=== PATIENT | male | born 1940 | race Caucasian/White ===

== ENCOUNTER → 2016-11-22 | Outpatient (CLI) | payer OTHER, BC ==
[~2016-11-22] MED LIST: ASPI81TA28 PO; ATEN50TA8 PO; ENOX100I SQ; FLM4 PO; GLC500 PO; INSU1.2I SQ; INSUINJ17 SC; LEVO150T9 PO; METF-384 PO; PRS5 PO; SERT25TA PO; SIMV40TA2 PO; SYN150 PO; TAMS0.4C59 PO; WARF5TAB90 PO; WARF7.5T PO; ZOLP1TAB PO
[2016-11-22 13:02] LABS: ESTIMATED AVERAGE GLUCOSE 143 mg/dl; HA1C FLAG Normal (Normal)
[2016-11-22 13:09] LABS: CHOLESTEROL/HDL RATIO 3.5
== END | disposition home or self-care (01) ==
LOC: C.LABPVFM 08:08
PROVIDERS: ATTEND Nurse Practitioner Family
DX: E11.49 Type 2 diabetes mellitus with other diabetic neurological complication (principal)

== ENCOUNTER 2016-12-16 12:18 | Emergency (ER) | payer OTHER, BC ==
[~2016-12-16] VITALS: Ht 180.3 cm; Wt 98.5 kg
[~2016-12-16 12:18] MED LIST changes: -ASPI81TA28 PO; -ENOX100I SQ; -FLM4 PO; -INSU1.2I SQ; -LEVO150T9 PO; -METF-384 PO; -WARF5TAB90 PO; -WARF7.5T PO
[2016-12-16 12:21] VITALS: TEMP 36.4; Ht 180.3 cm; Wt 98.5 kg
[2016-12-16 13:18] LABS: BASO % 0.2 %; BASO ABS # 0.01 K/uL (0-0.2); COMPLETE YES; EOS % 3.4 %; HEMATOCRIT 42.3 % (42-52); IG% 0.2 %; LYMPH % 28.6 %; LYMPH ABS # 1.16 K/uL (1.2-3.4); MEAN CELL VOLUME 87.8 fL (80-100); MEAN CORPUSCULAR HEMOGLOBIN 30.7 pg (25-34); MEAN PLATELET VOLUME 9.4 fL (7.4-10.4); MONO % 20.9 %; NEUT % 46.7 %; PLATELET COUNT 307 K/uL (130-400); RED BLOOD COUNT 4.82 M/uL (4.7-6.1); WHITE BLOOD COUNT 4.06 K/uL (4.8-10.8)
[2016-12-16] MEDS ORDERED: WARF5TAB90 PO (13:21)
[2016-12-16] MEDS ORDERED: WARF7.5T PO (13:21)
[2016-12-16] MEDS ORDERED: ASPI81TA28 PO (13:21)
[2016-12-16] MEDS ORDERED: METF-384 PO (13:21)
[2016-12-16] MEDS ORDERED: INSU1.2I SQ (13:21)
[2016-12-16 13:24] LABS: INR 1.7 (0.9-1.1); PROTHROMBIN TIME (PATIENT) 18.7 SECONDS (9.0-12.0)
[2016-12-16] MEDS ORDERED: PRS5 PO (13:25)
[2016-12-16] MEDS ORDERED: FLM4 PO (13:25)
[2016-12-16] MEDS ORDERED: LEVO150T9 PO (13:25)
--- NOTE | 2016-12-16 15:09 | DIAGNOSTIC IMAGING REPORT ---
RIGHT LOWER EXTREMITY VENOUS DOPPLER CLINICAL HISTORY: Right lower extremity swelling. COMPARISON STUDY: Right lower extremity venous Doppler March 13, 2016. TECHNIQUE: Sonography of the deep venous system of the right lower extremity was performed. Compression and augmentation were evaluated. FINDINGS: Nonocclusive thrombus within the right popliteal vein. Thrombus at this location was not shown on exam of March 13, 2016. No additional sites of deep venous thrombus were identified within the right lower extremity. IMPRESSION: Nonocclusive age indeterminate deep venous thrombus within the right popliteal vein. Electronically signed by: Leif Ledbetter M.D. 12/16/2016 3:08 PM Dictated Date/Time: 12/16/2016 3:04 PM
[2016-12-16 15:55] VITALS: BP 133/86; PULSE 72; O2SAT 94
[2016-12-16] MEDS ORDERED: ENOX100I SQ (16:07)
[2016-12-16] MEDS ORDERED: ENOXAPARIN 1 MG/KG SQ SCH (16:15)
--- NOTE | 2016-12-16 18:43 | EMERGENCY ROOM VISIT NOTE ---
History Report prepared by Gaudencio: Inocente Parmar Under the Supervision of: Dr. Tristan Reyes D.O. First contact with patient: 12:38 Chief Complaint: LEG PAIN,LEG INJURY Stated Complaint: BLOOD CLOT RIGHT CALF,DOCTOR REFERRED History of Present Illness The patient is a 76 year old male who presents to the Emergency Room with complaints of constant left leg pain that started two days ago. He rates his pain as a 6/10 in severity. The patient states that he is worried he has another blood clot because his pain is similar to his previous leg pains that he had developed from blood clots. He states that he went to visit his doctor recently when the nurse advised him to report to the ED. The patient states that his history of blood clots started a couple of years ago when he reported to the ED and found a blood clot in his popliteal artery. He states that his second blood clot occurred on the right side of his left leg following his abdominal surgery in March of 2016. The patient states that he is a former smoker and has been taking Coumadin for several years. He states that his last level was checked a week and a half ago and was 2.8. The patient states that his next appointment to check his levels is in four days. He also reports that he has been experiencing nausea and vomiting, but reports that he visited a doctor for these symptoms who said that it was just an illness from traveling to [facility]. The patient denies headache, change in vision, fevers, chest pain, shortness of breath, diarrhea, pain with urination, and melena. Source of History: patient Onset: two days ago Position: leg (left) Symptom Intensity: 6/10 Timing: constant Associated Symptoms: + nausea, + vomiting Review of Systems See HPI for pertinent positives & negatives. A total of 10 systems reviewed and were otherwise negative. Past Medical & Surgical Medical Problems: (1) Diabetes (2) Hx of blood clots (3) Hypertension (4) Right leg DVT (5) Urinary problem Surgical Problems: (1) Hx of shoulder surgery Family History Diabetes mellitus FHx: cancer FHx: heart disease Hypertension Social History Smoking Status: Former Smoker Alcohol Use: occasionally Marital Status: Occupation Status: unemployed Current/Historical Medications Scheduled Aspirin (Aspirin Ec), 81 MG PO QAM Atenolol (Tenormin), 75 MG PO QAM Enoxaparin (Lovenox), 100 MG SQ BID Finasteride (Finasteride), 5 MG PO DAILY Insulin Glargine (Toujeo Solostar), 26 UNITS SQ QPM Levothyroxine Sodium (Levothyroxine Sodium), 150 MCG PO QAM Metformin Hcl (Glucophage), 1,000 MG PO BID Sertraline (Zoloft), 25 MG PO QAM Simvastatin (Zocor), 40 MG PO QPM Tamsulosin HCl (Tamsulosin HCl), 0.4 MG PO DAILY Warfarin Sodium (Coumadin), 5 MG PO [id number] Warfarin Sodium (Coumadin), 7.5 MG PO MWF Scheduled PRN Zolpidem Tartrate (Ambien Er), 12.5 MG PO HS PRN for Sleep Allergies Coded Allergies: No Known Allergies (Verified , 12/16/16) Physical Exam Vital Signs Date Time Temp Pulse Resp B/P (MAP) Pulse Ox O2 Delivery O2 Flow Rate FiO2 12/16/16 15:55 72 16 133/86 94 Room Air 12/16/16 14:00 64 16 140/71 95 Room Air 12/16/16 12:21 36.4 79 16 136/77 96 Room Air Physical Exam GENERAL: sitting up in bed, alert, well appearing, well nourished, no distress, non-toxic EYE EXAM: normal conjunctiva, PERRL and EOM's grossly intact OROPHARYNX: no exudate, no erythema, lips, buccal mucosa, and tongue normal and mucous membranes are moist NECK: supple, no nuchal rigidity, no adenopathy, non-tender LUNGS: Clear to auscultation. Normal chest wall mechanics HEART: no murmurs, S1 normal and S2 normal ABDOMEN: abdomen soft, non-tender, normo-active bowel sounds, no masses, no rebound or guarding. UPPER EXTREMITIES: upper extremities are grossly normal. LOWER EXTREMITIES: No pitting edema. Right lower extremity full range of motion. Flexion and extension upright hip, knee, and ankle. DP 2/4. Gross sensation intact. Calves equal bilateral. NEURO EXAM: Normal sensorium, cranial nerves II-XII grossly intact, normal speech, no gross weakness of arms, no gross weakness of legs. Gross sensation intact. Medical Decision & Procedures ER Provider Diagnostic Interpretation: Radiology results as stated below per my review and the radiologist's interpretation: RIGHT LOWER EXTREMITY VENOUS DOPPLER CLINICAL HISTORY: Right lower extremity swelling. COMPARISON STUDY: Right lower extremity venous Doppler March 13, 2016. TECHNIQUE: Sonography of the deep venous system of the right lower extremity was performed. Compression and augmentation were evaluated. FINDINGS: Nonocclusive thrombus within the right popliteal vein. Thrombus at this location was not shown on exam of March 13, 2016. No additional sites of deep venous thrombus were identified within the right lower extremity. IMPRESSION: Nonocclusive age indeterminate deep venous thrombus within the right popliteal vein. Electronically signed by: Leif Ledbetter M.D. 12/16/2016 3:08 PM Dictated Date/Time: 12/16/2016 3:04 PM Laboratory Results 12/16/16 13:00 Red Blood Count 4.82, Mean Corpuscular Volume 87.8, Mean Corpuscular Hemoglobin 30.7, Mean Corpuscular Hemoglobin Concent 35.0, Mean Platelet Volume 9.4, Neutrophils (%) (Auto) 46.7, Lymphocytes (%) (Auto) 28.6, Monocytes (%) (Auto) 20.9, Eosinophils (%) (Auto) 3.4, Basophils (%) (Auto) 0.2, Neutrophils # (Auto ) 1.89, Lymphocytes # (Auto) 1.16, Monocytes # (Auto) 0.85, Eosinophils # (Auto ) 0.14, Basophils # (Auto) 0.01 Test 12/16/16 13:00 12/16/16 15:16 White Blood Count 4.06 K/uL (4.8-10.8) Red Blood Count 4.82 M/uL (4.7-6.1) Hemoglobin 14.8 g/dL (14.0-18.0) Hematocrit 42.3 % (42-52) Mean Corpuscular Volume 87.8 fL (80-100) Mean Corpuscular Hemoglobin 30.7 pg (25-34) Mean Corpuscular Hemoglobin Concent 35.0 g/dl (32-36) Platelet Count 307 K/uL (130-400) Mean Platelet Volume 9.4 fL (7.4-10.4) Neutrophils (%) (Auto) 46.7 % Lymphocytes (%) (Auto) 28.6 % Monocytes (%) (Auto) 20.9 % Eosinophils (%) (Auto) 3.4 % Basophils (%) (Auto) 0.2 % Neutrophils # (Auto) 1.89 K/uL (1.4-6.5) Lymphocytes # (Auto) 1.16 K/uL (1.2-3.4) Monocytes # (Auto) 0.85 K/uL (0.11-0.59) Eosinophils # (Auto) 0.14 K/uL (0-0.5) Basophils # (Auto) 0.01 K/uL (0-0.2) RDW Standard Deviation 45.9 fL (36.4-46.3) RDW Coefficient of Variation 14.2 % (11.5-14.5) Immature Granulocyte % (Auto) 0.2 % Immature Granulocyte # (Auto) 0.01 K/uL (0.00-0.02) Prothrombin Time 18.7 SECONDS (9.0-12.0) Prothromb Time International Ratio 1.7 (0.9-1.1) Bedside Glucose 92 mg/dl (70-99) Laboratory results per my review. ED Course ED COURSE: Vital signs were reviewed and showed hypertension The patients medical record was reviewed The above diagnostic studies were performed and reviewed. ED treatments and interventions as stated above. 1240: The patient was evaluated in room C02B. A complete history and physical examination was performed. 1325: I reevaluated the patient and he is resting comfortably. He is still waiting on his ultrasound results. 1429: I reevaluated the patient and he is resting comfortably. 1547: I reevaluate the patient and he is resting comfortably. 1550: I discussed the patient's case with Dr. May, Cardiology [facility]. He recommends giving the patient Coumadin and an INR recheck. 1609: Upon reevaluation, the patient is feeling better. I discussed the findings and the treatment plan with the patient. She verbalizes agreement and understanding. The patient was discharged home. 1615: Enoxaparin Sodium 1 each SQ. Medical Decision The differential diagnosis includes but is not limited to: etiologies such as DVT, musculoskeletal, infection, joint effusion, trauma, lymphedema, idiopathic , CHF, as well as others were entertained.. Medication Reconciliation: I attest that I have personally reviewed the patient' s current medication list. Blood Pressure Screening: The patient was found to have a slightly elevated blood pressure due to circumstances. I do not believe that the patient requires hypertension monitoring. 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 History of clots. He is on Coumadin. Coumadin was 1.7. Indeterminate clot in right calf. Discussed with cardiology who is managing his Coumadin. Agreed with increasing Coumadin to 7.5 mg daily until when he will check his INR at home. In the meantime he'll take Lovenox subcutaneous twice a day. Patient was updated regards these findings. He will follow-up with cardiology on when he checks his INR. At that time he will stop the Lovenox and followed their direction for readjusting Coumadin dosing. Discussed with Pt concerning signs and symptoms to watch out for. Pt was instructed to follow up with their PCP and discussed with the patient their option to return to the ED at anytime for persistent or worsening symptoms. The appropriate anticipatory guidance and out-patient management, including indications for return to the emergency department, were explained at length to the patient and understood. Consults Time Called: 1550 Consulting Physician: Dr. May, Cardiology [facility] Returned Call: 1550 I discussed the patient's case with Dr. May, Cardiology [facility]. He recommends giving the patient Coumadin and an INR recheck. Impression Primary Impression: DVT, lower extremity Additional Impression: Subtherapeutic international normalized ratio (INR) Scribe Attestation The scribe's documentation has been prepared under my direction and personally reviewed by me in its entirety. I confirm that the note above accurately reflects all work, treatment, procedures, and medical decision making performed by me. Departure Information Dispostion Home / Self-Care Prescriptions Enoxaparin (LOVENOX) 100 Mg/Ml Inj 100 MG SQ BID for 3 Days Prov: Tristan Reyes, 12/16/16 Referrals RV. Shelton MD (PCP) Forms HOME CARE DOCUMENTATION FORM, IMPORTANT VISIT INFORMATION Patient Instructions DVT, DVT Dc, Enoxaparin injection, My [facility] Additional Instructions Please follow up with your primary care doctor or if you are a student, [facility] with in the next 24 hours. Any worsening of your symptoms, please return to the ED immediately. This includes any fevers greater than 100.4, worsening pain, chest pain, shortness breath, persistent nausea, vomiting, unable to eat or drink, or any other concerning signs or symptoms from your standpoint. You were found to have a blood pressure greater than 120 systolic over 90 diastolic. Due to the new Medicare guidelines, we are now recommending that you follow up with your primary care doctor in regards to this elevated blood pressure. Please increase your daily Coumadin to 7.5 mg daily until your INR is checked on Friday. Please contact cardiology who is following your Coumadin level and inform them of your age indeterminate DVT. Please take Lovenox shots for the next 3 days. Problem Qualifiers Primary Impression: DVT, lower extremity Affected thrombotic vein of extremity: unspecified vein of extremity Chronicity: unspecified Laterality: unspecified laterality Qualified Codes: I82.409 - Acute embolism and thrombosis of unspecified deep veins of unspecified lower extremity
== END 2016-12-16 16:15 | disposition home or self-care (01) ==
LOC: C.EDB 12:20 → C.EDC 16:15
DX: I82.431 Acute embolism and thrombosis of right popliteal vein (principal); R79.1 Abnormal coagulation profile; E11.9 Type 2 diabetes mellitus without complications; I10 Essential (primary) hypertension; R11.2 Nausea with vomiting, unspecified; Z87.891 Personal history of nicotine dependence; Z82.49 Family history of ischemic heart disease and other diseases of the circulatory system; Z83.3 Family history of diabetes mellitus; Z79.01 Long term (current) use of anticoagulants; Z79.4 Long term (current) use of insulin; Z79.82 Long term (current) use of aspirin; Z79.84 Long term (current) use of oral hypoglycemic drugs

== ENCOUNTER → 2017-08-26 | Outpatient (CLI) | payer OTHER, BC ==
[~2017-08-26] MED LIST changes: +ASPI81TA28 PO; +ENOX100I SQ; +FLM4 PO; -GLC500 PO; +INSU1.2I SQ; -INSUINJ17 SC; +LEVO150T9 PO; +METF-384 PO; -SYN150 PO; -TAMS0.4C59 PO; +WARF5TAB90 PO; +WARF7.5T PO
[2017-08-26 13:25] LABS: BASO % 0.3 %; BASO ABS # 0.02 K/uL (0-0.2); EOS % 6.1 %; EOS ABS # 0.42 K/uL (0-0.5); HEMATOCRIT 41.6 % (42-52); HEMOGLOBIN 14.1 g/dL (14.0-18.0); IG# 0.02 K/uL (0.00-0.02); LYMPH % 19.6 %; LYMPH ABS # 1.35 K/uL (1.2-3.4); MEAN CELL VOLUME 89.1 fL (80-100); MEAN CORPUSCULAR HEMOGLOBIN 30.2 pg (25-34); MEAN CORPUSCULAR HGB CONC 33.9 g/dl (32-36); MEAN PLATELET VOLUME 10.1 fL (7.4-10.4); MONO % 8.7 %; NEUT ABS # 4.47 K/uL (1.4-6.5); PLATELET COUNT 346 K/uL (130-400); RED CELL DISTRIBUTION WIDTH CV 13.9 % (11.5-14.5); RED CELL DISTRIBUTION WIDTH SD 45.6 fL (36.4-46.3); WHITE BLOOD COUNT 6.88 K/uL (4.8-10.8)
[2017-08-26 14:28] LABS: ALBUMIN 3.8 gm/dl (3.4-5.0); ALT/SGPT 41 U/L (12-78); AST/SGOT 23 U/L (15-37); BLOOD UREA NITROGEN 19 mg/dl (7-18); CALCIUM 9.1 mg/dl (8.5-10.1); CARBON DIOXIDE 25 mmol/L (21-32); CREATININE 1.21 mg/dl (0.60-1.40); GLUCOSE 142 mg/dl (70-99); POTASSIUM 4.4 mmol/L (3.5-5.1); SODIUM 139 mmol/L (136-145)
[2017-08-26 14:31] LABS: ALKALINE PHOSPHATASE 49 U/L (45-117); TOTAL PROTEIN 7.6 gm/dl (6.4-8.2)
== END | disposition home or self-care (01) ==
LOC: C.LABPVFM 08:23
PROVIDERS: ATTEND Internal Medicine Cardiovascular Disease
DX: E11.49 Type 2 diabetes mellitus with other diabetic neurological complication (principal); I48.91 Unspecified atrial fibrillation; E78.00 Pure hypercholesterolemia, unspecified; N40.1 Benign prostatic hyperplasia with lower urinary tract symptoms

== ENCOUNTER → 2018-01-16 | Outpatient (CLI) | payer OTHER, BC | END | disposition home or self-care (01) | LOC: C.LABPVFM 14:41 | PROVIDERS: ATTEND Urology | DX: Z12.5 Encounter for screening for malignant neoplasm of prostate (principal) ==

== ENCOUNTER 2020-01-18 06:36 | Inpatient (IN) ==
--- NOTE | 2019-12-22 15:19 | PAT Medication Instructions ---
Medication Instructions Date of Service December 22, 2019 Home Medications Medication Instructions Recorded metformin 1,000 mg tablet 1,000 mg PO BID #180 tab 04/21/19 simvastatin 40 mg tablet 40 mg PO QPM #90 tab 05/07/19 Dexcom G6 Sensor #3 ea NS 06/22/19 Dexcom G6 Transmitter #1 ea NS 06/22/19 blood-glucose meter,continuous #1 ea 06/22/19 pen needle, diabetic 32 gauge x #400 ea 07/06/19" Novolog Flexpen U-100 Insulin 100 See Rx Instructions .ROUTE 09/13/19 unit/mL (3 mL) subcutaneous .COMPLEX #45 ml NS TrialPayTouch Ultra Blue Test Strip #100 ea NS 09/28/19 aspirin 81 mg tablet,delayed release 81 mg PO QAM multivitamin 1 cap PO QAM metformin 1,000 mg tablet 1,000 mg PO BID simvastatin 40 mg tablet 40 mg PO QPM cyanocobalamin (vitamin B-12) 1,000 mcg tablet,extended release 1,000 mcg PO QAM Novolog Flexpen U-100 Insulin 100 unit/mL (3 mL) subcutaneous WITH MEALS allopurinol 100 mg PO QAM atenolol 50 mg PO QAM cholecalciferol (vitamin D3) 2,000 units PO QAM 12/20/19 finasteride 5 mg PO PM insulin glargine U-300 conc [Toujeo SoloStar U-300 Insulin] 30 units SQ PM levothyroxine 150 mcg PO QAM rivaroxaban 20 mg PO PM sertraline 75 mg PO QAM tamsulosin 0.4 mg PO PM ASK your prescriber and surgeon rivaroxaban 20 mg PO PM -- MUST BE HELD FOR AT LEAST 3 FULL DAYS PRIOR TO SURGERY FOR SPINAL ANESTHESIA. DO NOT take the morning of surgery multivitamin 1 cap PO QAM metformin 1,000 mg tablet 1,000 mg PO BID cyanocobalamin (vitamin B-12) 1,000 mcg tablet,extended release 1,000 mcg PO QAM Novolog Flexpen U-100 Insulin 100 unit/mL (3 mL) subcutaneous WITH MEALS cholecalciferol (vitamin D3) 2,000 units PO QAM Take morning of surgery With a small sip of water, OTHERWISE NOTHING TO EAT OR DRINK AFTER MIDNIGHT: aspirin 81 mg tablet,delayed release 81 mg PO QAM allopurinol 100 mg PO QAM atenolol 50 mg PO QAM levothyroxine 150 mcg PO QAM sertraline 75 mg PO QAM Take evening before surgery metformin 1,000 mg tablet 1,000 mg PO BID simvastatin 40 mg tablet 40 mg PO QPM Novolog Flexpen U-100 Insulin 100 unit/mL (3 mL) subcutaneous WITH MEALS finasteride 5 mg PO PM insulin glargine U-300 conc [Toujeo SoloStar U-300 Insulin] 30 units SQ PM tamsulosin 0.4 mg PO PM Other Notes If you have any questions please call us at [phone] or [phone] or [phone] or [phone]
--- NOTE | 2019-12-23 12:26 | Anesthesiology Consultation ---
Date of Service December 23, 2019 Assessment & Plan (1) Encounter for pre-operative examination: COVID Status: As of 12/22 assessment, patient denies travel to endemic area, known exposure/sick contacts, or symptoms of COVID19. Patient instructed that they and their household members must follow strict social distancing guidelines, wear a mask in public and avoid travel for 14 days prior to surgery. Patient going to [place] (very remote location) for vacation prior to surgery. Leaving 12/23, returning 12/31. Scheduled for COVID test 11 days after return on 01/11. Patient is flying [employer], will observe masking and social distancing. Preoperative COVID19 testing to be completed prior to surgery per surgeon's arrangements. Patient made aware to self-isolate as much as possible between COVID testing and surgery. Chart Review Chart Review: Acceptable Risk for Surgery and Patient seen in Pre Admission Testing Teaching & Discussion Instructed NPO after midnight before surgery, except medications with 15 cc of water. Medication instructions provided according to the PAT guidelines. History Surgery Operation Date: 01/18/20 12:30 Proposed Procedures p Left Total Knee Arthroplasty - Guicho Ragland MD Height/Weight Height: 5 ft 11 in Weight: 98.1 kg Allergies Allergy/AdvReac Type Severity Reaction Status Date / Time No Known Drug Allergies Allergy Verified 12/20/19 15:09 Medications Home Medications Medication Instructions Recorded Confirmed Last Taken aspirin 81 mg tablet,delayed 81 mg PO QAM tab 12/17/18 12/20/19 Unknown release lancets 33 gauge #100 ea 02/15/19 10/28/19 Unknown multivitamin 1 cap PO QAM 02/15/19 12/20/19 Unknown metformin 1,000 mg tablet 1,000 mg PO BID #180 tab 04/21/19 12/20/19 Unknown simvastatin 40 mg tablet 40 mg PO QPM #90 tab 05/07/19 12/20/19 Unknown Dexcom G6 Sensor #3 ea NS 06/22/19 10/28/19 Unknown Dexcom G6 Transmitter #1 ea NS 06/22/19 10/28/19 Unknown blood-glucose meter,continuous #1 ea 06/22/19 10/28/19 Unknown cyanocobalamin (vitamin B-12) 1,000 mcg PO QAM tab 06/22/19 12/20/19 Unknown 1,000 mcg tablet,extended release pen needle, diabetic 32 gauge x #400 ea 07/06/19 12/20/19 Unknown " Novolog Flexpen U-100 Insulin 100 See Rx Instructions .ROUTE 09/13/19 12/20/19 Unknown unit/mL (3 mL) subcutaneous .COMPLEX #45 ml NS NetDevicesTouch Ultra Blue Test Strip #100 ea NS 09/28/19 10/28/19 Unknown allopurinol 100 mg PO QAM 12/20/19 12/20/19 Unknown atenolol 50 mg PO QAM 12/20/19 12/20/19 Unknown cholecalciferol (vitamin D3) 2,000 units PO QAM 12/20/19 12/20/19 Unknown finasteride 5 mg PO PM 12/20/19 12/20/19 Unknown insulin glargine U-300 conc 30 units SQ PM 12/20/19 12/20/19 Unknown [Toujeo SoloStar U-300 Insulin] levothyroxine 150 mcg PO QAM 12/20/19 12/20/19 Unknown rivaroxaban 20 mg PO PM 12/20/19 12/20/19 Unknown sertraline 75 mg PO QAM 12/20/19 12/20/19 Unknown tamsulosin 0.4 mg PO PM 12/20/19 12/20/19 Unknown Past Medical History Medical History Anemia (Acute) Anticoagulant long-term use (Acute) 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 Follows with Dr. May. 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) Diabetic peripheral neuropathy (Chronic) Dupuytren's contracture (Chronic) LEFT LITTLE FINGER DVT (deep venous thrombosis) LEFT FOOT > POST SURG > 6 YRS AGO> ON ELIQUIS Dyslipidemia (Chronic) Essential hypertension (Resolved) Gout Hypercholesterolemia (Chronic) Hypothyroidism (acquired) (Chronic) Left knee DJD Moderate alcohol consumption (Inactive) Osteoarthritis PAD (peripheral artery disease) (Chronic) Vitamin D deficiency (Chronic) Exercise / Class Metabolic Activity II 4-5 Yardwork/Stairs/Walk up hill (Denies CP or SOB with 1 FOS, just slow, limited by knee pain) Past Family History Family History Mother Laryngeal cancer Lung cancer Father Coronary heart disease Diabetes Grandfather (Paternal) Diabetes Denies family history of Ovarian cancer Prostate cancer Myocardial infarction Breast cancer Colorectal cancer Past Surgical History Surgical History History of cataract surgery bilat History of colectomy For diverticulitis. History of colonoscopy History of embolectomy Arterial by leg incision> RIGHT LEG POPLITEAL > 20 YRS AGO History of fasciotomy Open Palmar for Dupuytren's Contracture> bilat History of inguinal hernia repair History of resection of rib Cervical rib with division of scalenous anticus> ROM GOOD PER PATIENT History of total shoulder replacement right Hx of vasectomy Past Anesthesia History No Hx of Anesthesia Complications and No Family Hx of Anesthesia Complications History of PONV No Hx of PONV and No Hx of Motion Sickness Social History Smoking Status: Former smoker Do You Dip or Chew Tobacco: No Smoking End Date: 30 YRS AGO Hx Alcohol Use: Yes Alcohol type: beer, wine and hard liquor alcohol intake frequency: a few times a month Hx Substance Use: Yes substance use type: marijuana Substance Use Type Other:: SMOKES AT HS, none x 24 hours before surgery Review of Systems Pt denies any recent chest pain, shortness of breath, palpitations, cough, fever, URI, or uncontrolled acid reflux. Physical Exam Vital Signs BP: 135/75 P: 65bpm SPO2: 97% RA T: 97.8 F R: 16 ENMT Mouth: no dental restorations, no chipped teeth and no loose teeth Thyromental Distance: > or= 3.5 Finger Breadths (3.5) Mallampati Class: I Neck normal visual inspection and + facial hair (stubble); neck extension not limited Respiratory normal respiratory effort Auscultation: lungs clear to auscultation bilaterally Cardiovascular Rate/Rhythm: regular rate and regular rhythm Heart Sounds: no murmur Vessels: no carotid bruit Extremities: no edema Testing Laboratory Results 12/23/19 12:45 12/23/19 12:45 PT 11.4 Seconds (9.0-12.0) 12/23/19 12:45 INR 1.1 (0.9-1.1) 12/23/19 12:45 APTT 33.7 Seconds (21.0-31.0) H 12/23/19 12:45 Hemoglobin A1c 6.4 % (4.5-5.6) H 12/23/19 12:45 Blood Type A Positive 12/23/19 12:45 Antibody Screen NEGATIVE 12/23/19 12:45 Electrocardiogram Date: 07/20/19 Findings: + NSR @ (75bpm) and + RBBB Chest X-Ray Date: 07/20/19 (CHEST CT) FINDINGS: Note is made of acute nondisplaced fractures of the posterior left 10th and 11th ribs. There is a trace left pleural effusion. There is no pneumothorax. Segmental left lower lobe opacity favors atelectasis. There is subsegmental right lower lobe atelectasis. The central airways are patent. Heart is moderately enlarged. There is no thoracic lymphadenopathy. There is no mediastinal hematoma. No acute thoracic spine fracture is noted. There are no suspicious osseous lesions. There is possible fatty infiltration of the liver. Right shoulder arthroplasty is incidentally noted. IMPRESSION: 1. Acute nondisplaced fractures of the posterior left 10th and 11th ribs. Trace left pleural effusion. No pneumothorax. 2. Bilateral lower lobe and lingular atelectasis.
[2019-12-23 14:17] LABS: Basophils # (auto) 0.02 K/uL (0-0.2); Basophils % (auto) 0.2 %; Eosinophils # (auto) 0.76 K/uL (0-0.5); Eosinophils % (auto) 8.4 %; Hematocrit (blood only) 38.5 % (42-52); Hemoglobin 13.2 g/dL (14.0-18.0); Immature Granulocytes # (auto) 0.01 K/uL (0.00-0.02); Immature Granulocytes % (auto) 0.1 %; Lymphocytes # (auto) 1.41 K/uL (1.2-3.4); Lymphocytes % (auto) 15.6 %; Mean Corpuscular Hemoglobin 28.8 pg (25-34); Mean Corpuscular Hgb Conc 34.3 g/dL (32-36); Mean Corpuscular Volume 83.9 fL (80-100); Monocytes # (auto) 0.72 K/uL (0.11-0.59); Monocytes % (auto) 7.9 %; Neutrophils # (auto) 6.14 K/uL (1.4-6.5); Neutrophils % (auto) 67.8 %; Platelet Count 390 K/uL (130-400); RDW Coefficient of Variation 14.2 % (11.5-14.5); RDW Standard Deviation 43.7 fL (36.4-46.3); Red Blood Count 4.59 M/uL (4.7-6.1); White Blood Count 9.06 K/uL (4.8-10.8)
[2019-12-23 14:20] LABS: Estimated Average Glucose 137 mg/dl; Hemoglobin A1C 6.4 % (4.5-5.6)
[2019-12-23 14:25] LABS: BUN Creatinine Ratio 20.7 (10-20); Calcium 9.3 mg/dl (8.5-10.1); Creatinine Clr Calc Pharmacy 54.6 ml/min; Est GFR (African American) 59.6; Est GFR (Non-African American) 51.4; Potassium 4.6 mmol/L (3.5-5.1)
[2019-12-23 14:35] LABS: INR 1.1 (0.9-1.1); Partial Thromboplastin Ratio 1.2; Partial Thromboplastin Time 33.7 Seconds (21.0-31.0); Prothrombin Time 11.4 Seconds (9.0-12.0)
--- NOTE | 2020-01-14 20:48 | History and Physical Report ---
DATE OF ADMISSION: 01/18/2020 CHIEF COMPLAINT: Persistent left knee pain, discomfort, and swelling. HISTORY OF PRESENT ILLNESS: The patient is a 79-year-old fairly active gentleman who presents for treatment of his left knee. He has a history of left knee pain, followed by Dr. Jama in the past. Unfortunately, his in 12/2018 and he has gained some weight since then. He has been trying to get more active in order to lose some of the weight and his knee has become more and more bothersome for him. We have been treating with repeated aspirations and injections, which provided minimal relief over time. It continued to swell up quite a bit. He has been on a weight loss program, but having difficulty due to his limited activity due to his knee pain. He has constant swelling. Pain is fairly global. He would now like to have his knee fixed. PAST MEDICAL HISTORY: Significant for, 1. Atrial fibrillation, status post cardioversion. 2. Diabetes. 3. Mitral valve prolapse. 4. Hypothyroidism. 5. History of DVT in the left lower extremity. 6. Popliteal artery clot on the right side in 1995. 7. BPH. PAST SURGICAL HISTORY: Includes, 1. Right shoulder replacement done by Dr. Jama. 2. Bowel resection. ALLERGIES: None. CURRENT MEDICINES: Include, 1. Aspirin. 2. Atenolol. 3. Finasteride. 4. Insulin. 5. Levothyroxine. 6. Metformin. 7. Multivitamin. 8. Xarelto. 9. Sertraline. 10. Sildenafil. 11. Simvastatin. 12. Tamsulosin. SOCIAL HISTORY: A 79-year-old male. He is . One drink per day. Uses marijuana and CBD oil. FAMILY HISTORY: Significant for diabetes and lung cancer. REVIEW OF SYSTEMS: Significant for atrial fibrillation, although he has been in sinus rhythm on his preoperative workup. Denies any chest pain or shortness of breath. He does use CBD and marijuana. No history of gout. No bleeding problems. PHYSICAL EXAMINATION: GENERAL: Shows a pleasant elderly male. Looks to be in pretty good health. HEENT: Benign. NECK: Supple, no lymphadenopathy. LUNGS: Clear to auscultation. HEART: Has a regular rate and rhythm. ABDOMEN: Soft, nontender, nondistended. EXTREMITIES: Grossly neurovascularly intact except as follows: Examination of the left knee reveals the patient walks with a bit of a limp. He has got varus alignment to his knee. He has got pretty significant joint effusion. No real warmth. Range of motion is 5 degrees short of full extension and 120 degrees of flexion. There is no gross instability. No pain with hip motion. X-RAYS: X-rays of the left knee were reviewed. It shows advanced medial compartment arthritis. He has got complete loss of his medial joint space. This has progressed significantly since his films done at [facility] in 03/2019. ASSESSMENT: A 79-year-old male with multiple medical comorbidities including atrial fibrillation, neuropathy, history of blood clots in the past, diabetes with advanced medial compartment degenerative joint disease. This has progressed over the past year significantly and he has failed all conservative measures. He would like to have his knee fixed. PLAN: We will take him to the operating room and do a left total knee replacement. The risks and benefits of this procedure were explained to the patient including but not limited to DVT, PE, , infection, neurological injury, vascular injury, bleeding problem, pain, limited range of motion, stiffness, failure to his relieve symptoms, incomplete relief of symptoms, need for further surgery in the future, fracture, leg length inequality, nerve palsy, etc. The patient understands and desires to proceed. Informed consent was obtained. We did talk about holding the Xarelto 48 hours beforehand. Hold the metformin on the morning of surgery. He should take the atenolol. With his history of DVT, we will put him back on Xarelto postoperatively at a prophylactic dose 24 hours after surgery. As far as discharge plans, he is hoping to be discharged to home using the [facility] home health program. We will see how he does in the hospital.
[~2020-01-18 06:36] MED LIST changes: +ACETAMINOPHEN 500 MG TAB PO SCH; -ASPI81TA28 PO; -ATEN50TA8 PO; +BUPIVACAINE 0.5 % 5 MG/1 ML PF 10ML VIAL ONE; +BUPIVACAINE LIPOSOME/PF 266 MG, BUPIVACAINE/EPINEPHRINE 50 ML, SODIUM CHLORIDE 0.9% 30 ... INFIL SCH; +CEFAZOLIN 2000MG 2,000 MG/15 ML SYR IV SCH; -ENOX100I SQ; +FAMOTIDINE 20 MG TAB PO SCH; -FLM4 PO; +GABAPENTIN 300 MG CAP PO SCH; -INSU1.2I SQ; -LEVO150T9 PO; +LR 500ML BOLUS, THEN 15ML/HR IV SCH; +LR 60ML/HR IV SCH; -METF-384 PO; +METOCLOPRAMIDE HCL 10 MG TABLET PO SCH; -PRS5 PO; -SERT25TA PO; -SIMV40TA2 PO; +TRANEXAMIC ACID 1,000 MG **IV Intra-op IV SCH; +TRANEXAMIC ACID 1,000 MG **IV Pre-op IV SCH; -WARF5TAB90 PO; -WARF7.5T PO; -ZOLP1TAB PO
--- NOTE | 2020-01-18 06:51 | History & Physical Bridge Note ---
Date of Service January 18, 2020 History & Physical Bridge Note I have examined the patient, reviewed the History & Physical and in the interval since the performance of the History & Physical I have noted the following changes of clinical significance: no changes noted
[2020-01-18] MEDS ORDERED: MIDAZOLAM HCL 1 MG/ML 2ML VIAL ONE (07:04)
[2020-01-18] MEDS ORDERED: fentaNYL citrate 100 MCG/2 ML VIAL ONE ×2 (07:04→08:58)
[2020-01-18] MEDS ORDERED: PROPOFOL IV EMULSION 10 MG/ML 20 ML VIAL IV ONE (07:06)
[2020-01-18] MEDS ORDERED: ePHEDrine sulfate 50 MG/ML AMP IV PRN (08:15)
[2020-01-18] MEDS ORDERED: ONDANSETRON INJ 2 MG/ML 2 ML VIAL IV PRN ×2 (08:15→11:29)
[2020-01-18] MEDS ORDERED: fentaNYL citrate 100 MCG/2 ML VIAL IV PRN (08:15)
[2020-01-18] MEDS ORDERED: ATROPINE SULFATE 0.1 MG/ML 10ML SYR IV PRN (08:15)
[2020-01-18] MEDS ORDERED: ROPIVACAINE 0.5% 5 MG/ML 30 ML VIAL ONE (08:25)
[2020-01-18] MEDS ORDERED: BUPIVACAINE/EPINEPHRINE 0.25% 1:200,000 30 ML VIAL ONE (08:37)
[2020-01-18] MEDS ORDERED: BUPIVACAINE LIPOSOME 1.3% 266 MG/20 ML VIAL ONE (08:37)
[2020-01-18] MEDS ORDERED: BACITRACIN INJ 50,000 UNIT VIAL ONE (08:37)
[2020-01-18] MEDS ORDERED: SODIUM CHLORIDE 0.9% PF 50 ML VIAL ONE (08:37)
[2020-01-18] MEDS ORDERED: ePHEDrine sulfate 50 MG/ML SYR ONE (08:58)
[2020-01-18] MEDS ORDERED: PHENYLEPHRINE 100MCG/ML 5ML SYR ONE (08:58)
[2020-01-18] MEDS ORDERED: DEXAMETHASONE SOD INJ 4 MG/ML VIAL ONE (09:01)
[2020-01-18] MEDS ORDERED: ONDANSETRON INJ 2 MG/ML 2 ML VIAL ONE (09:01)
[2020-01-18] MEDS ORDERED: HYDROmorphone INJ 2 MG/ML SYR/VIAL ONE (09:24)
--- NOTE | 2020-01-18 10:33 | Post Operative Brief Note ---
PG Immediate Post Op with CF Date of Surgery January 18, 2020 Pre & Post Diagnosis Operation Date: 01/18/20 08:50 Pre-Op Diagnosis: Left Knee Advanced Degenerative Joint Disease Post-Op Diagnosis: Left Knee Advanced Degenerative Joint Disease I identified the patient and participated in the time-out.: Yes Procedure Operation Date: 01/18/20 08:50 Actual Procedures p Left Total Knee Arthroplasty(Left) - Guicho Ragland MD Surgeon Guicho Ragland MD Sanitation Tank Washer Za, PAC Estimated Blood Loss 50 Findings Consistent with Post-Op Diagnosis Fluids 800 cc Specimens Specimen Description: Permanent specimen: A. Left knee bone and tissue B. Left knee synovium tissue Anesthesia Type General Regional Complications none Disposition Accompanied Patient To Recovery: Yes Disposition: Recovery Room
--- NOTE | 2020-01-18 10:51 | Operative Report ---
Post Operative Report Pre & Post Diagnosis Operation Date: 01/18/20 08:50 Pre-Op Diagnosis: Left Knee Advanced Degenerative Joint Disease Post-Op Diagnosis: Left Knee Advanced Degenerative Joint Disease I identified the patient and participated in the time-out.: Yes Procedure Operation Date: 01/18/20 08:50 Actual Procedures p Left Total Knee Arthroplasty(Left) - Guicho Ragland MD Surgeon Guicho Ragland MD Building Attendant Za, PAC Estimated Blood Loss 50 Findings Consistent with Post-Op Diagnosis Operative findings revealed advanced left knee medial and patellofemoral compartment arthritis. He had a large knee joint effusion. He did have a significant chronic synovitis synovial growths which looked benign in the suprapatellar pouch which was sent off for pathology. He had grade 4 bone-on- bone disease of the medial compartment as well as the patellofemoral compartment. Fluids 800 cc. Specimens Left knee sent for pathology. Also send some synovium for pathology. Drains None. Anesthesia Type General Regional Complications none Disposition Accompanied Patient To Recovery: Yes Disposition: Recovery Room Indications Patient is a 79-year-old very active gentleman is had a history of left knee pain discomfort that is gotten suddenly worse over the past 6 months or so. He has been through a difficult social situation with his recently and gained some weight. He was try to lose some weight is become more active but had more more difficulty due to his knee pain. Had recurrent swelling. Failed all conservative care. X-rays show progressive left knee arthritis. He elected to proceed with surgical treatment. Of note, the patient is on Xarelto. He only stopped this about 36 hours before surgery and therefore a spinal anesthetic could not be performed. He was fully aware this and wanted to proceed. We did have to do his surgery under general anesthesia with abductor canal block. Description of Procedure Operative implants consist of: 1 Biomet Vanguard size 70 left posterior by femoral component. 2. Biomet size 79 tibial tray. 3. 10 mm posterior stabilized polyethylene insert. 4. 31 x 8 all poly-patella. The patient was taken to the operating identified and placed on the operating table supine position protectors were properly padded. A general anesthetic it was implemented as he he had been on Xarelto up and about 36 hours preop. A left thigh turn was then placed. The left lower extremity was then prepped and draped in usual sterile fashion. Left leg was elevated exsanguinated Esmarch and turns placed at 300 mmHg. An anterior posterior left knee was then performed to longitudinal incision centered over the patella. Sharp dissection was got through subcutaneous this down the extensor mechanism. A medial parapatellar arthrotomy incision was made. Some subperiosteal dissection Medially. I did do a complete synovectomy of the suprapatellar pouch and some this abnormal looking the synovium was sent for pathology. It appeared benign. The fat pad was resected from each patella tendon. Lateral patellofemoral ligament was released and the patella was subluxated laterally. The knee was flexed. The osteophytes were taken off the distal femur. The ACL and PCL were then released from distal femur the tibia subluxate anteriorly. External tibial alignment jig was then placed in the interface the tibia and adjusted 14 mm medially. Proximal tibial cut was made to move about 2 to 3 mm of bone from the medial side. The tibia was then sized to a size 79. We try to maximize coverage. Attention drawn the femur. The distal femur was entered the sharp drop with intramedullary canal was suction. A left 6 degree valgus cutting guide was placed. Distal femoral cutting block was pinned in place. Distal femoral cut was made to take an additional 3 mm of bone off distal femur. The femur was then sized to a size 70. We did downsize a slightly. The AP cutting block was then pinned parallel to the epicondylar axis which was 5 degrees external rotation. The anterior cut, anterior chamfer, posterior cut, posterior chamfer cuts were made. Box cutting guide was placed and adjusted slightly laterally. The box cut was made. The knee was flexed. The remnants of the medial lateral menisci were excised. The osteophytes were taken off the posterior aspect the femur. A trial femoral component was placed but the tibial tray was pinned in maximum external rotation and the drill and stem punch were used to create defect in proximal tip for the tibial tray. Knee was then trialed the 10 mm insert fit most appropriately. Attention drawn the patella. The patella was cleaned of all soft tissues. Patella thickness measured 24 mm in thickness and was cut down to 14. Was sized to a size 31 patella. The lug holes were drilled for 31 patella. The lateral osteophyte was removed. Patella button was placed. Knee was taken through range of motion patella tracked nicely with no thumbs test. Attention drawn to place the permanent components. All trial components were removed. Bone plug was placed in the distal femur limit blood loss put a double batch Palacos G cement was mixed. Biomet Vanguard's size 70 left posterior by femoral component size, a size 79 tibial tray, a 10 mm posterior box polyethylene insert, and a 31 x 8 all poly-patella then cement in place. Knee was brought out in full extension total cement hardened. Upon cement check was then performed. The pericapsular tissues were injected with total 100 cc of combination of 20 cc of Exparel, 30 cc normal saline, 50 cc of quarter percent Marcaine with epinephrine. Patient did receive 1 g tranexamic acid. The tourniquet was then let down for final tourniquet time of 54 minutes. Hemostasis assured use electrocautery. The extensor mechanism closed with combination 1 PDS suture #1 Vicryl suture in [id number] fashion. Extensor mechanism checked found to be intact the subcutaneous tissue then closed with 2 Dexon suture in buried nerve fascia skin was closed skin new. Leg was then cleaned dried a sterile dressing composed Xeroform, 4 x 4's, sterile cast padding, Geovany bandage were applied. Patient then brought out of general anesthesia and transferred to the recovery room in stable condition. The patient tolerated procedure well and there were no complications. Jimmie Mendenhall, my physician pediatric physical therapy assistant, was present for the entire procedure. His assistance was a central line required for appropriate patient positioning, prepping and draping, surgical exposure, performing the technical details of the operation, placement the implants, closure of the wound, and placement of the sterile bandage. I attest to the content of the Intraoperative Record and any orders documented therein. Any exceptions are noted below.
--- NOTE | 2020-01-18 11:02 | Anesthesiology Progress Note ---
Date of Service January 18, 2020 Anesthesia Post Procedure Vital Signs Vital Signs: Temp Pulse Pulse Resp BP BP Pulse Ox 01/18/20 10:55 73 14 136/75 95 01/18/20 10:45 75 15 135/71 96 01/18/20 10:35 76 10 L 124/67 97 01/18/20 10:28 97.3 F L 77 17 144/69 H 94 01/18/20 07:50 60 20 137/77 98 01/18/20 07:28 97.9 F 70 20 138/85 94 Pain Intensity Left Knee: Pain Intensity: 0 Transfer of Care Handoff Completed per policy Notes Mental Status: alert / awake / arousable and participated in evaluation Patient Amnestic to Procedure: Yes Nausea / Vomiting: adequately controlled Pain: adequately controlled Airway Patency, RR, SpO2: stable & adequate BP & HR: stable & adequate Hydration State: stable & adequate Neuraxial Anesthesia: was administered and sensory block is resolving Anesthetic Complications: no major complications apparent and Pt Satisfied with anesthetic care
--- NOTE | 2020-01-18 11:14 | XRay Report ---
XR knee LT 1 or 2V routine CLINICAL HISTORY: Postoperative evaluation. COMPARISON: Knee radiographs December 09, 2019. FINDINGS: Alignment of the total left knee arthroplasty is anatomic. There is no periprosthetic frac ture or unexpected radiopaque foreign body. There are skin new. IMPRESSION: Expected findings following total left knee arthroplasty. ACT 112: Negative or not required by law. Electronically signed by: eLif Ledbetter M.D. 01/18/2020 11:12 AM
[2020-01-18] MEDS ORDERED: ALUMINUM/MAGNESIUM SUSP 30 ML UDC PO PRN (11:29)
[2020-01-18] MEDS ORDERED: GLUCAGON FOR INJ 1 MG VIAL SQ PRN (11:29)
[2020-01-18] MEDS ORDERED: GLUCOSE 10 TABS/TUBE PO PRN (11:29)
[2020-01-18] MEDS ORDERED: GLUCOSE 40% GEL 15 GM TUBE PO PRN (11:29)
[2020-01-18] MEDS ORDERED: DEXTROSE 50% 50 ML SYRINGE IV PRN (11:29)
[2020-01-18] MEDS ORDERED: NALOXONE HCL 0.4 MG/1 ML VIAL/CARP IV PRN (11:29)
[2020-01-18] MEDS ORDERED: METOCLOPRAMIDE HCL INJ 5 MG/ML 2 ML VIAL IV PRN (11:29)
[2020-01-18] MEDS ORDERED: MAGNESIUM HYDROXIDE SUSP 30 ML UDC PO PRN (11:29)
[2020-01-18] MEDS ORDERED: bisacodyL 10 MG SUPP PR PRN (11:29)
[2020-01-18] MEDS ORDERED: CARBOHYDRATES FOR HYPOGLYCEMIA PO PRN (11:29)
[2020-01-18] MEDS ORDERED: PHARMACY GLYCEMIC MGMT CONSULT PRN (11:44)
[2020-01-18] MEDS: SODIUM CHLORIDE 0.9% 1000ML 1,000 ML IV SCH ×2 (11:58→22:31)
[2020-01-18] MEDS: KETOROLAC TROMETHAMINE 15 MG/ML VIAL IV SCH ×2 (11:59→18:04)
[2020-01-18] MEDS: INSULIN ASPART 100 UNITS/ML 3 ML PEN SC SCH ×3 (13:21→20:38)
--- NOTE | 2020-01-18 13:51 | Pharmacy Report ---
Pharmacy Glycemic Short Note 2 - Date of Service January 18, 2020 - Glycemic Short BSG Results (Last 24 hours): 01/18/20 01/18/20 01/18/20 07:08 11:09 12:02 POC Glucose 135 H 148 H 146 H OUTPATIENT ANTIDIABETIC REGIMEN: * Toujeo 30 units SQ qPM * Aspart 05/06/15 units with meals * A1c = 6.4% (12/23/19) ASSESSMENT: * Gurpreet is a 79 yo T2DM male s/p L TKA * Pt received steroids mehdi-op (DXM 4 mg IV), therefore short term hyperglycemia is likely * Will utilize weight/stress of 3 dosing for Novolog and stress patient's home dose of Lantus for POD #0. * Hold metformin until evidence of renal function at baseline and tolerating an oral diet PLAN FOR INPATIENT GLYCEMIC CONTROL: * Hold outpatient oral diabetes medications * Basal insulin * Lantus per scale qPM (will order with dinner for POD #0) * 25 units for BSG < 140 -> equivalent to home dose with 20% reduction for conversion from Toujeo -> Lantus * 30 units for BSG 140-180 * 40 units for BSG > 180 * Bolus insulin * NovoLog per scale ACHS or Q6hrs while NPO * Goal Range: Low 110 mg/dL - High 140 mg/dL * Correction Factor: 15 mg/dL/unit * Nutritional / Prandial insulin per carb ratio of 1 unit per 6 grams CHO consumed PLAN FOR DISCHARGE: * A1c of 6.4% is at goal * Continue home regimen on discharge
[2020-01-18] MEDS: ACETAMINOPHEN 500 MG TAB PO SCH ×2 (14:09→22:59)
[2020-01-18] MEDS: OXYCODONE HCL IR 5 MG TAB (IMMEDIATE RELEASE) PO PRN (14:10)
[2020-01-18] MEDS: CEFAZOLIN 2000MG 2,000 MG/15 ML SYR IV SCH (15:32)
[2020-01-18] MEDS ORDERED: TRANEXAMIC ACID / 0.7% NACL 1,000 MG/100 ML BAG IV SCH (16:30)
[2020-01-18] MEDS ORDERED: INSULIN GLARGINE SOLOSTAR 100 UNITS/ML 3 ML PEN SC SCH (16:30)
[2020-01-18] MEDS: ASCORBIC ACID 500 MG TAB PO SCH (18:03)
[2020-01-18] MEDS: FERROUS GLUCONATE 324 MG TAB PO SCH (18:03)
[2020-01-18] MEDS: TAMSULOSIN HCL 0.4 MG CAP PO SCH (20:31)
[2020-01-18] MEDS: FINASTERIDE 5 MG TAB PO SCH (20:31)
[2020-01-18] MEDS: SENNA 8.6 MG TAB PO SCH (20:31)
[2020-01-18] MEDS: SIMVASTATIN 40 MG TAB PO SCH (20:31)
[2020-01-18] MEDS: TAPENTADOL HCL ER 50 MG TABCR PO SCH (20:32)
[2020-01-18] MEDS: DOCUSATE SODIUM 100 MG CAP PO SCH (20:32)
[2020-01-19] MEDS: INSULIN ASPART 100 UNITS/ML 3 ML PEN SC SCH ×6 (00:12→20:25)
[2020-01-19] MEDS: KETOROLAC TROMETHAMINE 15 MG/ML VIAL IV SCH ×2 (00:27→05:50)
[2020-01-19] MEDS: CEFAZOLIN 2000MG 2,000 MG/15 ML SYR IV SCH (00:27)
[2020-01-19] MEDS: LEVOTHYROXINE SODIUM 150 MCG TABLET PO SCH (05:49)
[2020-01-19] MEDS: ACETAMINOPHEN 500 MG TAB PO SCH ×3 (05:50→22:08)
[2020-01-19 06:42] LABS: Hemoglobin 11.2 g/dL (14.0-18.0); Mean Corpuscular Hemoglobin 28.9 pg (25-34); Mean Corpuscular Hgb Conc 33.9 g/dL (32-36); Mean Corpuscular Volume 85.3 fL (80-100); Mean Platelet Volume 8.6 fL (7.4-10.4); Platelet Count 297 K/uL (130-400); RDW Coefficient of Variation 14.8 % (11.5-14.5); Red Blood Count 3.87 M/uL (4.7-6.1); White Blood Count 13.98 K/uL (4.8-10.8)
[2020-01-19 07:17] LABS: BUN Creatinine Ratio 19.6 (10-20); Calcium 8.1 mg/dl (8.5-10.1); Creatinine Clr Calc Pharmacy 48.9 ml/min; Est GFR (African American) 52.7; Est GFR (Non-African American) 45.5; Potassium 4.6 mmol/L (3.5-5.1)
--- NOTE | 2020-01-19 07:22 | Orthopedic Progress Note ---
Date of Service January 19, 2020 Assessment & Plan (1) Status post total left knee replacement: He was seen and examined by Dr. Ragland today. Continue PT/OT Pain is controlled. Continue d/c planning: home with home health likely tomorrow DVT prophylaxis: teds, scds, xarelto Admission and Anticipated Discharge Date Admission Date: January 18, 2020 Subjective 79 y/o male POD #1 from left tka. He's doing well. Denies having much pain at this point. Denies chest pain or shortness of breath. Physical Exam Physical Exam: Alert and oriented. NAD. Left leg: Dressing clean, dry, intact. NVi. Can DF and PF appropriately. VSS Results & Data ([facility]) Vital Signs (Past 12 Hours) Vital Signs Temp Pulse Resp BP Pulse Ox 01/19/20 03:58 36.4 C L 66 16 137/71 95 01/18/20 22:55 36.4 C L 64 16 131/68 96 PG Care Time/CCT Total # of Minutes Spent Total Time Spent with Patient: Total time spent is greater than 50% in coordination of care (as documented) at patient's floor/unit and/or counseling patient: Coding Level of Care Code None Diagnoses Status post total left knee replacement Z96.652
[2020-01-19] MEDS: allopurinoL 100 MG TAB PO SCH (07:48)
[2020-01-19] MEDS: ATENOLOL 50 MG TABLET PO SCH (07:48)
[2020-01-19] MEDS: MULTIVITAMIN TAB PO SCH (07:49)
[2020-01-19] MEDS: DOCUSATE SODIUM 100 MG CAP PO SCH ×2 (07:49→20:22)
[2020-01-19] MEDS: ASCORBIC ACID 500 MG TAB PO SCH ×2 (07:49→17:49)
[2020-01-19] MEDS: ASPIRIN 81 MG ECTAB PO SCH (07:49)
[2020-01-19] MEDS: FERROUS GLUCONATE 324 MG TAB PO SCH ×2 (07:49→17:49)
[2020-01-19] MEDS: CHOLECALCIFEROL 1,000 UNITS 25 MCG TAB PO SCH (07:50)
[2020-01-19] MEDS: SERTRALINE HCL 50 MG TABLET PO SCH (07:50)
[2020-01-19] MEDS: CYANOCOBALAMIN 500 MCG TABLET (VITAMIN B-12) PO SCH (07:50)
[2020-01-19] MEDS: TAPENTADOL HCL ER 50 MG TABCR PO SCH ×2 (07:53→20:18)
--- NOTE | 2020-01-19 08:12 | Anesthesiology Progress Note ---
Date of Service January 19, 2020 Anesthesia Post Procedure Vital Signs Vital Signs: Temp Pulse Pulse Pulse Resp BP BP 01/19/20 07:20 36.5 C 67 18 144/74 H 01/19/20 03:58 36.4 C L 66 16 137/71 01/18/20 22:55 36.4 C L 64 16 131/68 01/18/20 15:38 36.4 C L 78 14 128/66 01/18/20 14:20 83 14 129/69 01/18/20 13:20 80 16 112/62 01/18/20 12:20 68 16 132/67 01/18/20 11:50 72 16 132/65 01/18/20 11:05 36.3 C L 72 12 129/70 01/18/20 10:55 73 14 136/75 01/18/20 10:45 75 15 135/71 01/18/20 10:35 76 10 L 124/67 01/18/20 10:28 36.3 C L 77 17 144/69 H Pulse Ox 01/19/20 07:20 96 01/19/20 03:58 95 01/18/20 22:55 96 01/18/20 15:38 93 01/18/20 14:20 94 01/18/20 13:20 90 01/18/20 12:20 92 01/18/20 11:50 94 01/18/20 11:05 97 01/18/20 10:55 95 01/18/20 10:45 96 01/18/20 10:35 97 01/18/20 10:28 94 Pain Intensity Left Knee: Pain Intensity: 3 Notes Mental Status: alert / awake / arousable Patient Amnestic to Procedure: Yes Nausea / Vomiting: adequately controlled Pain: adequately controlled Airway Patency, RR, SpO2: stable & adequate BP & HR: stable & adequate Hydration State: stable & adequate Anesthetic Complications: no major complications apparent and Pt Satisfied with anesthetic care
[2020-01-19] MEDS ORDERED: NON-FORMULARY MEDICATION (Multivitamin 1 CAP) PO SCH (09:00)
[2020-01-19] MEDS: OXYCODONE HCL IR 5 MG TAB (IMMEDIATE RELEASE) PO PRN (11:50)
--- NOTE | 2020-01-19 12:11 | Pharmacy Report ---
Pharmacy Glycemic Short Note 2 - Date of Service January 19, 2020 - Glycemic Short BSG Results (Last 24 hours): 01/18/20 01/18/20 01/18/20 12:02 17:17 20:28 Glucose POC Glucose 146 H 258 H 216 H 01/19/20 01/19/20 01/19/20 00:04 03:57 06:31 Glucose 127 H POC Glucose 135 H 126 H 01/19/20 01/19/20 07:59 11:52 Glucose POC Glucose 119 H 125 H OUTPATIENT ANTIDIABETIC REGIMEN: * Toujeo 30 units SQ qPM * Aspart 05/06/15 units with meals * A1c = 6.4% (12/23/19) ASSESSMENT: 01/18: * Gurpreet is POD #1 s/p L TKA. He received 71 units of insulin yesterday: * 40 units of basal * 31 units of bolus * BSGs ranged from 135 - 258 mg/dL * Fasting BSG of 119 mg/dL is at goal. Will resume patients home dose. * Post prandial BSG greatly improved. I will loosen Novolog parameters since s teroid effect has worn off. * Scr trending upward. I will hold off on restarting metformin. 01/17: * Gurpreet is a 79 yo T2DM male s/p L TKA * Pt received steroids mehdi-op (DXM 4 mg IV), therefore short term hyperglycemia is likely * Will utilize weight/stress of 3 dosing for Novolog and stress patient's home dose of Lantus for POD #0. * Hold metformin until evidence of renal function at baseline and tolerating an oral diet PLAN FOR INPATIENT GLYCEMIC CONTROL: * Hold outpatient oral diabetes medications * Basal insulin - decrease * Lantus 30 units SQ qPM * Bolus insulin- loosen * NovoLog per scale ACHS or Q6hrs while NPO * Goal Range: Low 110 mg/dL - High 140 mg/dL * Correction Factor: 20 mg/dL/unit * Nutritional / Prandial insulin per carb ratio of 1 unit per 8 grams CHO consumed PLAN FOR DISCHARGE: * A1c of 6.4% is at goal * Continue home regimen on discharge
[2020-01-19] MEDS ORDERED: RIVAROXABAN 10 MG TABLET PO SCH (16:00)
[2020-01-19] MEDS: HYDROmorphone INJ 0.5 MG/0.5 ML SYR IV PRN ×2 (16:19→23:40)
[2020-01-19] MEDS: TAMSULOSIN HCL 0.4 MG CAP PO SCH (20:23)
[2020-01-19] MEDS: SENNA 8.6 MG TAB PO SCH (20:23)
[2020-01-19] MEDS: SIMVASTATIN 40 MG TAB PO SCH (20:23)
[2020-01-19] MEDS: FINASTERIDE 5 MG TAB PO SCH (20:24)
[2020-01-19] MEDS ORDERED: INSULIN GLARGINE SOLOSTAR 100 UNITS/ML 3 ML PEN SC SCH (21:00)
[2020-01-20] MEDS: OXYCODONE HCL IR 5 MG TAB (IMMEDIATE RELEASE) PO PRN ×3 (01:47→13:29)
[2020-01-20] MEDS: ACETAMINOPHEN 500 MG TAB PO SCH ×2 (06:05→13:30)
[2020-01-20] MEDS: LEVOTHYROXINE SODIUM 150 MCG TABLET PO SCH (06:05)
[2020-01-20] MEDS: FERROUS GLUCONATE 324 MG TAB PO SCH (07:48)
[2020-01-20] MEDS: ASCORBIC ACID 500 MG TAB PO SCH (07:49)
[2020-01-20] MEDS: CYANOCOBALAMIN 500 MCG TABLET (VITAMIN B-12) PO SCH (08:36)
[2020-01-20] MEDS: DOCUSATE SODIUM 100 MG CAP PO SCH (08:36)
[2020-01-20] MEDS: allopurinoL 100 MG TAB PO SCH (08:37)
[2020-01-20] MEDS: SERTRALINE HCL 50 MG TABLET PO SCH (08:37)
[2020-01-20] MEDS: MULTIVITAMIN TAB PO SCH (08:37)
[2020-01-20] MEDS: ATENOLOL 50 MG TABLET PO SCH (08:37)
[2020-01-20] MEDS: ASPIRIN 81 MG ECTAB PO SCH (08:38)
[2020-01-20] MEDS: CHOLECALCIFEROL 1,000 UNITS 25 MCG TAB PO SCH (08:39)
[2020-01-20] MEDS: TAPENTADOL HCL ER 50 MG TABCR PO SCH (08:41)
[2020-01-20] MEDS: INSULIN ASPART 100 UNITS/ML 3 ML PEN SC SCH ×2 (08:43→12:36)
--- NOTE | 2020-01-20 09:32 | Progress Notes ---
DATE: 01/20/2020 SUBJECTIVE: A 79-year-old gentleman postop day 2 from a left knee replacement. His pain has gotten a bit worse overnight, but doing better this morning. It took him a little while to catch up. No chest pain or shortness of breath. Not feeling dizzy or lightheaded. OBJECTIVE: VITAL SIGNS: Temperature 37.0. Vital signs stable. GENERAL: Physical examination shows a pleasant elderly male. He is sitting up on bed and looks pretty comfortable this morning. EXTREMITIES: Examination of the left leg reveals the leg to be well aligned. Dressing is clean, dry and intact. Calf is soft and supple. Some moderate swelling. He is neurologically intact. ASSESSMENT: A 79-year-old gentleman postop day 2 from a left knee replacement, doing pretty well. Pain kind of set in last night, but doing okay on the current pain medicines. PLAN: 1. DVT prophylaxis include thigh-high TEDs, SCDs and back on Xarelto. We will discharge him on a therapeutic dose to start tomorrow. 2. PT/OT. He can weightbear as tolerated. Left total knee protocol. 3. Pain control, doing okay with current pain regimen. 4. Disposition: Plan to discharge to home and he is going to do outpatient therapy.
[2020-01-20] MEDS: HYDROmorphone INJ 0.5 MG/0.5 ML SYR IV PRN (10:53)
--- NOTE | 2020-01-25 06:31 | Discharge Summary ---
Date of Service January 25, 2020 Admission HPI Per Admitting Provider Documented in the H & P Admission Exam (Per Admitting) Constitutional Documented in the H & P Discharge Data Consultations 01/18/20 11:29 Consult Case Management - Discharge Planning Routine Procedures Performed Operation Date: 01/18/20 08:50 Actual Procedures p Left Total Knee Arthroplasty(Left) - Guicho Ragland MD Hospital Course (1) Status post total left knee replacement: This patient is a 79 year old male admitted on 01/18/20 and underwent total knee arthroplasty. He tolerated the procedure well and there were no complications. Transferred to the PACU post op and later to the orthopedic floor for further care. He was given ancef for antibiotic prophylaxis. He was also given TABBY stockings, SCDs, and xarelto for DVT prophylaxis. Hemoglobin, hematocrit, and vital signs were monitored during his hospital stay and remained stable. Did not require any blood transfusions. There were no complications during his hospital stay. By post op day #2 the patient was tolerating a diabetic diet, pain was reasonably controlled with oral pain medicine, and he was participating in physical therapy. On post op day #2 the patient was discharged home and set up with home health care. He was given printed discharge instructions including prescriptions for extra strength tylenol and oxycodone. Continue physical therapy, weight bearing as tolerated. Continue TABBY stockings. Follow up approximately 2 weeks post op or sooner if there are problems or concerns. Coding Level of Care Code None Diagnoses Status post total left knee replacement Z96.652
== END 2020-01-20 13:53 | disposition home health service (06) | DRG 470 ==
LOC: 3N 06:36 → ASU 06:36

== ENCOUNTER 2024-09-27 09:51 | Observation (INO) ==
--- NOTE | 2024-08-30 12:31 | PAT Medication Instructions ---
Medication Instructions Date of Service August 30, 2024 Home Medications Medication Instructions Recorded Dexcom G6 Sensor (blood-glucose #3 ea 06/22/19 sensor) Dexcom G6 Transmitter #1 ea 06/22/19 (blood-glucose transmitter) blood-glucose,facilities painter,cont #1 06/22/19 (Dexcom G6 Kiln Hand) pen needle, diabetic 32 gauge x #300 ea 10/10/23 5/32" (BD Franchesca 2nd Gen Pen Needle) blood sugar diagnostic #100 ea 01/29/24 atenolol 50 mg tablet (Tenormin) 50 mg PO QAM #90 tabs 05/21/24 rivaroxaban 20 mg tablet (Xarelto) 20 mg PO PM #90 tabs 05/21/24 allopurinol 100 mg tablet 100 mg PO QAM #90 tabs 05/24/24 Humalog KwikPen Insulin 100 See Rx Instructions subcut 07/13/24 unit/mL subcutaneous (insulin .COMPLEX 90 days #30 mL lispro) Basaglar KwikPen U-100 Insulin 100 22 unit (0.22 mL) subcut QPM 90 07/26/24 unit/mL (3 mL) subcutaneous days #30 mL (insulin glargine) semaglutide 1 mg/dose (4 mg/3 mL) 1 mg (0.75 mL) subcut Q7D #9 mL 07/26/24 subcutaneous pen injector Medication List: aspirin 81 mg tablet,delayed release 81 mg PO QAM cyanocobalamin (vitamin B-12) 1,000 mcg tablet,extended release 1,000 mcg PO QAM cholecalciferol (vitamin D3) 125 mcg (5,000 unit) capsule 125 mcg PO HS clobetasol 0.05 % topical cream 1 applic topical BID PRN Skin Irritation atenolol 50 mg tablet (Tenormin) 50 mg PO QAM rivaroxaban 20 mg tablet (Xarelto) 20 mg PO PM allopurinol 100 mg tablet 100 mg PO QAM Humalog KwikPen Insulin 100 unit/mL subcutaneous (insulin lispro) See Rx Instructions subcut .COMPLEX Basaglar KwikPen U-100 Insulin 100 unit/mL (3 mL) subcutaneous (insulin glargine) 22 unit (0.22 mL) subcut QPM semaglutide 1 mg/dose (4 mg/3 mL) subcutaneous pen injector 1 mg (0.75 mL) subcut Q7D atorvastatin 20 mg tablet 20 mg PO HS levothyroxine 150 mcg tablet 150 mcg PO QAM sertraline 50 mg tablet (Zoloft) 50 mg PO QAM tadalafil 5 mg tablet (Cialis) 5 mg PO QAM MEDICATION INSTRUCTIONS: Continue as directed clobetasol 0.05 % topical cream 1 applic topical BID PRN Skin Irritation (do not apply after bathing prior to surgery) ASK your prescriber and surgeon aspirin 81 mg tablet,delayed release 81 mg PO QAM rivaroxaban 20 mg tablet (Xarelto) 20 mg PO PM DO NOT take the morning of surgery cyanocobalamin (vitamin B-12) 1,000 mcg tablet,extended release 1,000 mcg PO QAM Humalog KwikPen Insulin 100 unit/mL subcutaneous (insulin lispro) See Rx Instructions subcut .COMPLEX Take morning of surgery With a small sip of water, OTHERWISE NOTHING TO EAT OR DRINK AFTER MIDNIGHT: levothyroxine 150 mcg tablet 150 mcg PO QAM sertraline 50 mg tablet (Zoloft) 50 mg PO QAM tadalafil 5 mg tablet (Cialis) 5 mg PO QAM atenolol 50 mg tablet (Tenormin) 50 mg PO QAM allopurinol 100 mg tablet 100 mg PO QAM Take evening before surgery atorvastatin 20 mg tablet 20 mg PO HS cholecalciferol (vitamin D3) 125 mcg (5,000 unit) capsule 125 mcg PO HS Basaglar KwikPen U-100 Insulin 100 unit/mL (3 mL) subcutaneous (insulin glargine) 22 unit (0.22 mL) subcut QPM Humalog KwikPen Insulin 100 unit/mL subcutaneous (insulin lispro) See Rx Instructions subcut .COMPLEX Other Notes As discussed during RN phone call, last dose prior to surgery to be 09/20/24 of: semaglutide 1 mg/dose (4 mg/3 mL) subcutaneous pen injector 1 mg (0.75 mL) subcut Q7D If you have any questions please call us at [phone] or [phone] or [phone] or [phone]
--- NOTE | 2024-09-06 09:20 | Anesthesiology Consultation ---
Date of Service September 06, 2024 Assessment & Plan (1) Encounter for pre-operative examination: - Check BSG DOS - Infectious disease screening: Per assessment on 09/06/24- No known recent infectious disease contacts. Patient notes ongoing intermittent chills, felt r/[place] [facility] [place] Otherwise, no current infectious disease symptoms. - Outpatient joint assessment: Pt currently scheduled for inpatient pathway. If surgeon requests review for outpatient joint pathway, patient is not recommended candidate for outpatient joint program from anesthesia standpoint based on available information. - GLP-1 medication instructions: Patient informed by PAT to stop 7 days prior to surgery- voiced understanding. DOS 09/27/24. Advised last dose to be 09/20/24. - ASA/Xarelto instructions per surgeon/prescriber - Cardiology visit (05/21/24): "The patient is stable from a cardiovascular standpoint. He demonstrates excellent control of his blood pressure both at home and in the office today. He also demonstrates excellent control of his cholesterol values. He was commended on his active lifestyle and walking program. Fortunately, his coronary artery disease remains quiescent on his current medical regimen. Highly complex medical issues were managed and discussed today. Plan 1. Continue current medications. 2. Continue active lifestyle and walking program. 3. Continue home blood pressure monitoring. 4. Lipid panel prior to next visit. 5. Follow-up in 6 months." Chart Review Chart Review: Acceptable Risk for Surgery and Patient seen in Pre Admission Testing Teaching & Discussion Pre-Anesthesia Teaching/Discussion Notes: Instructed NPO after midnight before surgery,except medications with 15 cc of water. Medication instructions provided according to the PAT guidelines. History Surgery Operation Date: 09/27/24 08:00 Proposed Procedures p Left Reverse Total Shoulder Arthroplasty - Paco Umanzor, Height/Weight Height: 5 ft 11 in Weight: 98.3 kg Allergies Allergy/AdvReac Type Severity Reaction Status Date / Time No Known Drug Allergies Allergy Verified 08/24/24 10:45 Medications Home Medications Medication Instructions Recorded Confirmed Last Taken aspirin 81 mg tablet,delayed 81 mg PO QAM 12/17/18 08/24/24 12/04/22 07:00 release lancets 33 gauge (OneTouch Delica #100 ea 02/15/19 05/21/24 Unknown Lancets) Dexcom G6 Sensor (blood-glucose #3 ea 06/22/19 05/21/24 Unknown sensor) Dexcom G6 Transmitter #1 ea 06/22/19 05/21/24 Unknown (blood-glucose transmitter) blood-glucose,cloth boil off machine operator,cont #1 ea 06/22/19 05/21/24 Unknown (Dexcom G6 Gas Plant Repairer) cyanocobalamin (vitamin B-12) 1,000 mcg PO QAM 06/22/19 08/24/24 12/10/22 07:00 1,000 mcg tablet,extended release cholecalciferol (vitamin D3) 125 125 mcg PO HS 03/30/20 08/24/24 12/11/22 07:00 mcg (5,000 unit) capsule clobetasol 0.05 % topical cream 1 applic topical BID PRN Skin 04/03/21 08/24/24 Unknown Irritation pen needle, diabetic 32 gauge x #300 ea 10/10/23 05/21/24 Unknown 5/32" (BD Franchesca 2nd Gen Pen Needle) blood sugar diagnostic #100 ea 01/29/24 05/21/24 Unknown atenolol 50 mg tablet (Tenormin) 50 mg PO QAM #90 tabs 05/21/24 08/24/24 Unknown rivaroxaban 20 mg tablet (Xarelto) 20 mg PO PM #90 tabs 05/21/24 08/24/24 Unknown allopurinol 100 mg tablet 100 mg PO QAM #90 tabs 05/24/24 08/24/24 Unknown Humalog KwikPen Insulin 100 See Rx Instructions subcut 07/13/24 08/24/24 Unknown unit/mL subcutaneous (insulin .COMPLEX 90 days #30 mL lispro) Basaglar KwikPen U-100 Insulin 100 22 unit (0.22 mL) subcut QPM 90 07/26/24 08/24/24 Unknown unit/mL (3 mL) subcutaneous days #30 mL (insulin glargine) semaglutide 1 mg/dose (4 mg/3 mL) 1 mg (0.75 mL) subcut Q7D #9 mL 07/26/24 08/24/24 Unknown subcutaneous pen injector atorvastatin 20 mg tablet 20 mg PO HS 08/24/24 08/24/24 Unknown levothyroxine 150 mcg tablet 150 mcg PO QAM 08/24/24 08/24/24 Unknown sertraline 50 mg tablet (Zoloft) 50 mg PO QAM 08/24/24 08/24/24 Unknown tadalafil 5 mg tablet (Cialis) 5 mg PO QAM 08/24/24 08/24/24 Unknown Past Medical History Medical History (Updated 09/06/24 @ 09:28 by Nida Redd) 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, s/p embolectomy ASCVD (arteriosclerotic cardiovascular disease) Bilateral carpal tunnel syndrome Chills (without fever) Ongoing Noted per [facility] endocrine visit 07/26/24 under hypothyroidism r/t symptoms "cold intolerance/chills" Depression with anxiety Diabetes mellitus, type 2 IDDM Diabetic neuropathy Dupuytren's contracture Left pinky finger DVT (deep venous thrombosis) "Left foot" Post-op abdominal surgery (2015) Taking Xarelto Dyslipidemia Essential hypertension Gout History of atrial fibrillation Taking Xarelto Follows with [facility] cardio History of hypertension Hx of basal cell carcinoma Hypothyroidism, postablative Past Family History Family History Mother Laryngeal cancer Lung cancer Father Coronary heart disease Diabetes Grandfather (Paternal) Diabetes Other No family history of adverse response to anesthesia No family history of bleeding disorder Denies family history of Ovarian cancer Prostate cancer Myocardial infarction Breast cancer Colorectal cancer Past Surgical History Surgical History (Updated 09/01/24 @ 16:03 by Nida Redd) Adverse reaction to anesthetic agent PONV Urinary retention "years ago" after shoulder surgery- had to be cathed and given flomax at the time History of cataract surgery R/L History of colectomy For diverticulitis History of colonoscopy History of embolectomy Right popliteal 20+ years ago History of fasciotomy B/L Open Palmar for Dupuytren's Contracture History of inguinal hernia repair History of resection of rib Cervical rib with division of scalenous anticus History of total left knee replacement History of total shoulder replacement Right Hx of basal cell carcinoma excision Hx of cystoscopy Hx of vasectomy Past Anesthesia History No Family Hx of Anesthesia Complications * Post-op "smell" emitting from mouth after bowel resection * Urinary retention "years ago" after shoulder surgery- had to be cathed and given flomax at the time History of PONV History of PONV (Nausea) Social History Smoking Status: Former smoker tobacco type: cigars (Occasional) Do You Dip or Chew Tobacco: Yes (Hx occasional use (years ago)) Hx Alcohol Use: Yes Alcohol type: beer, wine and hard liquor alcohol intake frequency: a few times a month Hx Substance Use: Yes substance use type: marijuana (nightly) Review of Systems Ongoing chills, felt r/[place] [facility] [place] Patient denies chest pain, shortness of breath, dyspnea on exertion, fever, cough, wheezing, palpitations. Physical Exam Vital Signs BP 135/77 P 66 TEMP 97.5 SP02 96%RA RESP 16 Physical Full cervical extension range of motion. Full TMJ range of motion. TMD 3 finger breaths Mallampati Score I Dentition: intact, Caps/crowns (several) Lungs: clear throughout to auscultation Cardiac: regular rate and rhythm, faint systolic murmur Spine: normal Carotid arteries: negative bruit Extremities: no LE edema Lab Results Anesthesia Preop Results Results Anesthesia Widget: WBC 6.84 K/ul (4.8-10.8) 09/06/24 Hgb 14.2 g/dl (14.0-18.0) 09/06/24 Hct 41.7 % (42.0-52.0) L 09/06/24 Plt 322 K/uL (130-400) 09/06/24 Na 138 mmol/L (136-145) 09/06/24 K 4.5 mmol/L (3.5-5.1) 09/06/24 Cl 104 mmol/L (98-107) 09/06/24 CO2 28 mmol/L (21-32) 09/06/24 BUN 28 mg/dl (6-23) H 09/06/24 Creat 1.06 mg/dl (0.6-1.4) 09/06/24 Glucose Level 127 mg/dl (70-99(Fasting)) H 09/06/24 PT 11.6 Seconds (9.0-12.0) 09/06/24 PTT 31 Seconds (21-31) 09/06/24 INR 1.1 (0.9-1.1) 09/06/24 TSH 0.620 uIu/ml (0.300-4.500) 07/26/24 Free T4 1.14 ng/dl (0.61-1.60) 07/26/24 HA1c 6.7 % (4.5-5.6) H 09/06/24 Urine Color Yellow 07/22/24 Urine Appearance Clear (Clear) 07/22/24 Urine pH 5.5 (4.5-7.5) 07/22/24 Urine Specific Baxter 1.024 (1.000-1.030) 07/22/24 Urine Protein Trace (Negative) H 07/22/24 Urine Glucose (UA) Negative (Negative) 07/22/24 Urine Ketones Negative (Negative) 07/22/24 Urine Blood Negative (Negative) 07/22/24 Urine Nitrite Negative (Negative) 07/22/24 Urine Bilirubin Negative (Negative) 07/22/24 Urine Urobilinogen Negative (Negative) 07/22/24 Urine Leukocyte Esterase Negative (Negative) 07/22/24 Urine WBC (Auto) 0-5 /hpf (0-5) 07/22/24 Urine RBC (Auto) 0-2 /hpf (0-2) 07/22/24 Urine Hyaline Casts (Auto) 0-2 /lpf (0-2) 07/22/24 Urine Epithelial Cells (Auto) 0-2 /hpf (0-2) 07/22/24 Urine Bacteria (Auto) None Seen (None Seen) 07/22/24 Blood Type A Positive 09/06/24 Antibody Screen NEGATIVE 09/06/24 Testing Electrocardiogram Date: 09/06/24 SR with first degree AVB at 68bpm. RBBB. No significant change compared to 12/04/22 per farm butcher comparison. Chest X-Ray Date: 05/06/24 FINDINGS: Right shoulder prosthesis is seen. The cardiomediastinal silhouette is normal. The lungs are clear. No evidence of pleural effusion or pneumothorax. IMPRESSION: No acute abnormalities and in particular no radiographic evidence of pneumonia. Echocardiogram Date: 10/08/21 EF: 55-60% LV Function: normal RWMA: + none Other Findings: + LVH (mild/concentric ) and + diastolic dysfunction (Grade I ) Valvular Disease: + MR (mild ) LV mildly dilated LA moderately dilated Compared with study of 03/14/2016- no significant change Other Testing Carotid doppler Date: 12/09/23 <50% B/L ICA stenosis. Antegrade flow in both vertebral arteries.
--- NOTE | 2024-09-22 07:46 | History & Physical Report ---
Date of Service September 22, 2024 Assessment & Plan (1) Primary osteoarthritis, left shoulder: We will proceed with a left reverse shoulder arthroplasty. Postoperatively, he will be placed in a sling and kept overnight in the hospital for postop medical management. He plans to use energy physical therapy at discharge. History of Present Illness Chief Complaint: Osteoarthritis left shoulder. Primary Care Provider: Dominick Jaeger MD Gurpreet is a pleasant 83-year-old male who had a right anatomic shoulder replacement done by Dr. Jama about 15 years ago. He is still pretty sore with it, but he has good function. He is dealing more with left shoulder pain. He has trouble doing anything away from his body or up overhead. He has had cou ple injections in his shoulder. The last injection was not helpful. It is keeping him up at night. After failing extensive conservative treatment, he has elected proceed with a left reverse shoulder arthroplasty. Allergies Allergy/AdvReac Type Severity Reaction Status Date / Time No Known Drug Allergies Allergy Verified 08/24/24 10:45 Home Medications Medication Instructions Recorded Confirmed Type aspirin 81 mg tablet,delayed 81 mg PO QAM 12/17/18 08/24/24 History release lancets 33 gauge (OneTouch Delica #100 ea 02/15/19 05/21/24 History Lancets) Dexcom G6 Sensor (blood-glucose #3 ea 06/22/19 05/21/24 Rx sensor) Dexcom G6 Transmitter #1 ea 06/22/19 05/21/24 Rx (blood-glucose transmitter) blood-glucose,supply chain engineer,cont #1 ea 06/22/19 05/21/24 Rx (Dexcom G6 Manager Food Beverage) cyanocobalamin (vitamin B-12) 1,000 mcg PO QAM 06/22/19 08/24/24 History 1,000 mcg tablet,extended release cholecalciferol (vitamin D3) 125 125 mcg PO HS 03/30/20 08/24/24 History mcg (5,000 unit) capsule clobetasol 0.05 % topical cream 1 applic topical BID PRN Skin 04/03/21 08/24/24 History Irritation pen needle, diabetic 32 gauge x #300 ea 10/10/23 05/21/24 Rx " (BD Franchesca 2nd Gen Pen Needle) blood sugar diagnostic #100 ea 01/29/24 05/21/24 Rx atenolol 50 mg tablet (Tenormin) 50 mg PO QAM #90 tabs 05/21/24 08/24/24 Rx rivaroxaban 20 mg tablet (Xarelto) 20 mg PO PM #90 tabs 05/21/24 08/24/24 Rx allopurinol 100 mg tablet 100 mg PO QAM #90 tabs 05/24/24 08/24/24 Rx Humalog KwikPen Insulin 100 See Rx Instructions subcut 07/13/24 08/24/24 Rx unit/mL subcutaneous (insulin .COMPLEX 90 days #30 mL lispro) Basaglar KwikPen U-100 Insulin 100 22 unit (0.22 mL) subcut QPM 90 07/26/24 08/24/24 Rx unit/mL (3 mL) subcutaneous days #30 mL (insulin glargine) semaglutide 1 mg/dose (4 mg/3 mL) 1 mg (0.75 mL) subcut Q7D #9 mL 07/26/24 08/24/24 Rx subcutaneous pen injector atorvastatin 20 mg tablet 20 mg PO HS 08/24/24 08/24/24 History levothyroxine 150 mcg tablet 150 mcg PO QAM 08/24/24 08/24/24 History sertraline 50 mg tablet (Zoloft) 50 mg PO QAM 08/24/24 08/24/24 History tadalafil 5 mg tablet (Cialis) 5 mg PO QAM 08/24/24 08/24/24 History Past Med/Surg History Problem List BPH (benign prostatic hyperplasia) Chills (without fever) Diabetic nephropathy associated with type 2 diabetes mellitus Proteinuria Balance problem Diabetic peripheral neuropathy Hypogonadotropic hypogonadism in male Dyslipidemia Hypothyroidism, postablative Primary osteoarthritis, left shoulder Erectile dysfunction Allergic rhinitis due to allergen Elevated vitamin B12 level Diabetes type 2, controlled History of basal cell cancer Encounter for pre-operative examination Gout Arteriosclerotic cardiovascular disease (ASCVD) (Acute) Atrial fibrillation (Chronic) Depression with anxiety (Chronic) Vitamin D deficiency (Chronic) Hypertension Medical History History of hypertension Chills (without fever) Ongoing Noted per [facility] endocrine visit 07/26/24 under hypothyroidism r/t symptoms "cold intolerance/chills" Hypothyroidism, postablative Hx of basal cell carcinoma Dyslipidemia Diabetes mellitus, type 2 IDDM Depression with anxiety History of atrial fibrillation Taking Xarelto Follows with [facility] cardio ASCVD (arteriosclerotic cardiovascular disease) Diabetic neuropathy Bilateral carpal tunnel syndrome DVT (deep venous thrombosis) "Left foot" Post-op abdominal surgery (2015) Taking Xarelto 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, s/p embolectomy Dupuytren's contracture Left pinky finger Essential hypertension Gout Surgical History Hx of cystoscopy Hx of basal cell carcinoma excision Adverse reaction to anesthetic agent PONV Urinary retention "years ago" after shoulder surgery- had to be cathed and given flomax at the time History of total left knee replacement Hx of vasectomy History of colectomy For diverticulitis History of cataract surgery R/L History of total shoulder replacement Right History of colonoscopy History of fasciotomy B/L Open Palmar for Dupuytren's Contracture History of inguinal hernia repair History of resection of rib Cervical rib with division of scalenous anticus History of embolectomy Right popliteal 20+ years ago Family History Mother Laryngeal cancer Lung cancer Father Coronary heart disease Diabetes Grandfather (Paternal) Diabetes Other No family history of adverse response to anesthesia No family history of bleeding disorder Denies family history of Ovarian cancer Prostate cancer Myocardial infarction Breast cancer Colorectal cancer Social History Smoking Status: Former smoker Tobacco Type: Cigars Second Hand Exposure: No; Do You Dip or Chew Tobacco: Yes (Hx occasional use (years ago)); Hx Alcohol Use: Yes Alcohol type: beer, wine and hard liquor Hx Substance Use: Yes Substance Use Type Other:: SMOKES AT HS Preferred Language: Mongolian Communication Ability: Effective Visual Impairment: No Limitations Hearing Ability: Use of Hearing Aid Brick Cleaner Required: No Beliefs That Will Affect Care: None marital status: / Current Living Situation: Alone Current Living Situation Comment: HAS A GIRLFRIEND THAT STAYS WITH HIM AT TIMES current occupational status: retired Feels Safe at Home: Yes Childhood Exposure to Second-Hand Smoke: Yes Dental Care, Regularly: Yes Physical Activity Frequency: Daily Seatbelt Use: always Sunscreen Use: Yes Assistive Devices: Hearing Aid - Bilateral Review of Systems All systems reviewed & are unremarkable except as noted in HPI & below. Physical Exam On physical exam the left shoulder, he has very poor range of motion. He has pain over the glenohumeral joint line.. Constitutional WD/WN, vitals as above Eyes PERRL, conjunctivae normal, anicteric sclerae ENMT external ear and nose normal, oropharynx normal Neck trachea midline, no thyromegaly Respiratory normal respiratory effort Cardiovascular RRR, no murmur, no edema Gastrointestinal (Abdomen) normal bowel sounds, soft, nontender, no hepatosplenomegaly Psychiatric A+Ox3, euthymic affect Results & Data Results & Data Laboratory Results . Diagnostic Findings X-rays of the left shoulder show advanced osteoarthritis with joint space narrowing, osteophyte formation, and [id number] articulation.. PG Care Time/CCT Total # of Minutes Spent Total Time Spent with Patient: Total time spent is greater than 50% in coordination of care (as documented) at patient's floor/unit and/or counseling patient: Coding Level of Care Code None Diagnoses Primary osteoarthritis, left shoulder M19.012
[~2024-09-27 09:51] MED LIST changes: -ACETAMINOPHEN 500 MG TAB PO SCH; -BUPIVACAINE LIPOSOME/PF 266 MG, BUPIVACAINE/EPINEPHRINE 50 ML, SODIUM CHLORIDE 0.9% 30 ... INFIL SCH; -CEFAZOLIN 2000MG 2,000 MG/15 ML SYR IV SCH; -FAMOTIDINE 20 MG TAB PO SCH; -GABAPENTIN 300 MG CAP PO SCH; -LR 500ML BOLUS, THEN 15ML/HR IV SCH; -LR 60ML/HR IV SCH; -METOCLOPRAMIDE HCL 10 MG TABLET PO SCH; -TRANEXAMIC ACID 1,000 MG **IV Intra-op IV SCH; -TRANEXAMIC ACID 1,000 MG **IV Pre-op IV SCH
[2024-09-27] MEDS ORDERED: fentaNYL citrate PF 100 MCG/2 ML VIAL ONE (10:20)
[2024-09-27] MEDS ORDERED: ROCURONIUM BROMIDE 10 MG/ML 5 ML VIAL IV ONE (10:20)
[2024-09-27] MEDS ORDERED: LIDOCAINE 2% 2 ML VIAL/AMP(20MG/ML) INFIL ONE (10:20)
[2024-09-27] MEDS ORDERED: MIDAZOLAM HCL 1 MG/ML 2ML VIAL ONE (10:20)
[2024-09-27] MEDS ORDERED: ONDANSETRON INJ 2 MG/ML 2 ML VIAL ONE (10:20)
[2024-09-27] MEDS ORDERED: PROPOFOL IV EMULSION 10 MG/ML 20 ML VIAL IV ONE (10:20)
[2024-09-27] MEDS: LR 15ML/HR IV SCH (10:28)
[2024-09-27] MEDS: LR 60ML/HR IV SCH (10:42)
[2024-09-27] MEDS: ACETAMINOPHEN 500 MG TAB PO SCH ×2 (10:44→15:31)
[2024-09-27] MEDS: GABAPENTIN 300 MG CAP PO SCH (10:44)
[2024-09-27] MEDS: FAMOTIDINE 20 MG TAB PO SCH (10:44)
[2024-09-27] MEDS: dexAMETHasone**PF** 10 MG/ML VIAL IV SCH (10:44)
--- NOTE | 2024-09-27 10:53 | History & Physical Bridge Note ---
Date of Service September 27, 2024 History & Physical Bridge Note I have examined the patient, reviewed the History & Physical and in the interval since the performance of the History & Physical I have noted the following changes of clinical significance: no changes noted
[2024-09-27] MEDS ORDERED: ONDANSETRON INJ 2 MG/ML 2 ML VIAL IV PRN ×2 (11:04→14:35)
[2024-09-27] MEDS ORDERED: ePHEDrine sulfate 50 MG/ML AMP IV PRN (11:04)
[2024-09-27] MEDS ORDERED: ATROPINE SULFATE 0.1 MG/ML 10ML SYR IV PRN (11:04)
[2024-09-27] MEDS ORDERED: fentaNYL citrate PF 100 MCG/2 ML VIAL IV PRN (11:04)
[2024-09-27] MEDS: TRANEXAMIC ACID 1,000 MG **IV Pre-op IV SCH (11:32)
[2024-09-27] MEDS: ceFAZolin 2000MG 2,000 MG/15 ML SYR IV SCH ×2 (12:00→20:36)
[2024-09-27] MEDS: ROPIV 0.5% 246mg, Ketorolac 30mg, EPINEPHrine 0.5mg in NSS INFIL SCH (12:37)
[2024-09-27] MEDS: ORTHO JOINT ANESTHETIC ONE (12:38)
[2024-09-27] MEDS: TRANEXAMIC ACID 1,000 MG **IV Intra-op IV SCH (13:03)
[2024-09-27] MEDS ORDERED: SUGAMMADEX SODIUM 200 MG/2 ML VIAL IV ONE (13:08)
--- NOTE | 2024-09-27 14:12 | XRay Report ---
XR shoulder LT min 2V routine CLINICAL HISTORY: Post shoulder surgery COMPARISON: None FINDINGS: Left shoulder prosthesis shows no hardware complication. There is expected soft tissue gas . Skin new are present. IMPRESSION: Unremarkable postoperative exam. ACT 112: Negative or not required by law. Electronically signed by: Surjit Venegas M.D. 09/27/2024 2:10 PM
--- NOTE | 2024-09-27 14:16 | Operative Report ---
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 A tenodesis was opted. This was a separate and distinct portion of the procedure. For these reasons, a CPT code modifier 59 will be added to this case. Implants used: I used a [employer]omet Comprehensive reverse total shoulder arthroplasty system with a size 12 press fit micro humeral stem, a +3 offset humeral tray and a standard humeral bearing, a 25 mm small augment baseplate with a 6.5 mm central screw and superior and inferior locking screws, and a size 40 mm eccentric glenosphere. Kendell arrived at [facility] for the above procedure. He was seen in the preoperative holding area and the operative extremity was identified and signed. He was given a preoperative antibiotic, TXA, and an interscalene nerve block. He was taken back to the operating room, laid on table in supine position, and put under general anesthesia. He was then put into the beachchair position. The shoulder was then prepped and draped in sterile fashion. A timeout was done and the patient and the operative extremity was properly identified. A deltopectoral approach was used. Dissection was taken down through the fascia and the deltoid was retracted laterally and the conjoined tendon was retracted medially. The anterior shoulder was exposed. The biceps groove was opened up and the biceps tendon was examined extensively. The biceps tendon demonstrated enlargement and inflammatory changes consistent with longstanding inflammation in the context of osteoarthritis and cuff arthropathy. The long head of the biceps tendon was then tenodesed to the upper border of the pectoralis major. This was a separate and distinct portion of the procedure. The subscapularis was then directly released off the lesser tuberosity with a peel technique. The inferior capsule was released and the humeral head was dislocated. A canal finding reamer was sent down the center of the humeral canal. Sequential reaming up to a size 12 reamer was done. Off that reamer, a proximal humeral resection guide was placed. The proximal humerus was resected at 135 of inclination and 25 of retroversion. Osteophytes were then removed and the glenoid was exposed. Time was spent doing a complete capsular and labral release. The glenoid guide was then placed in the inferior aspect of the glenoid. A 3.2 mm Steinmann pin was then placed into the glenoid vault at 10 of inclination. The glenoid baseplate was then reamed. The final size 25 mm small augment baseplate was then impacted in the place. A 6.5 mm central screw was then placed followed by superior and inferior locking screws. A 40 mm eccentric glenosphere was then impacted into place. Surrounding soft tissues were then injected with 100 cc an orthopedic pain control cocktail. The proximal humerus was then exposed. Sequential broaching of the humerus up to a size 12 broach was done. Off that broach a +3 offset humeral tray was trialed. The shoulder was then reduced, brought through a full range of motion, and felt to be stable. The shoulder was then dislocated and the broach was removed. The final size 12 micro press-fit humeral stem was then impacted into place. A standard humeral bearing was then snapped onto a +3 offset humeral tray. The humeral tray was th en impacted onto the humeral stem. The shoulder was once again reduced, brought through a full range of motion, and felt to be stable. The subscapularis was poor quality and unable to be repaired.. A dilute betadyne lavage was then done for 3 minutes. The joint was then irrigated with normal saline solution. Hemostasis was obtained. The interval was closed with 2-0 Vicryl suture. The skin was then closed with 2-0 Vicryl and new. A Silverlon dressing was placed and the arm was rested in a regular arm sling. He was then extubated and transferred to a hospital bed. He taken to the postanesthesia care unit in stable condition. He tolerated the procedure well. Shane Simpson PA-C, was present for the entire procedure. He was critical for patient positioning, prepping, draping, retraction exposure, wound closure and application of sterile dressing. I attest to the content of the Intraoperative Record and any orders documented therein. Any exceptions are noted below.
[2024-09-27] MEDS ORDERED: NALOXONE HCL 0.4 MG/1 ML VIAL/CARP IV PRN (14:35)
[2024-09-27] MEDS ORDERED: NON-FORMULARY MEDICATION (Insulin Lispro [Humalog Kwikpen Insulin] 100 unit/mL insulin pen SQ SCH (14:35)
[2024-09-27] MEDS ORDERED: bisacodyL 10 MG SUPP PR PRN (14:35)
[2024-09-27] MEDS ORDERED: METOCLOPRAMIDE HCL INJ 5 MG/ML 2 ML VIAL IV PRN (14:35)
[2024-09-27] MEDS ORDERED: HYDROmorphone INJ 0.5 MG/0.5 ML SYR IV PRN (14:35)
[2024-09-27] MEDS ORDERED: MAGNESIUM HYDROXIDE SUSP 30 ML UDC PO PRN (14:35)
[2024-09-27] MEDS ORDERED: PHARMACY GLYCEMIC MGMT CONSULT PRN (14:35)
[2024-09-27] MEDS: BUPIVACAINE LIPOSOME 1.3% 133 MG/10 ML VIAL ONE (14:43)
--- NOTE | 2024-09-27 14:43 | Anesthesiology Progress Note ---
Date of Service September 27, 2024 Anesthesia Post Procedure Vital Signs Vital Signs: Temp Pulse Pulse Resp BP Pulse Ox O2 Del Method 09/27/24 14:35 97.5 F L 65 16 144/73 H 96 Room Air 09/27/24 14:15 97.5 F L 65 16 134/66 97 Nasal Cannula 09/27/24 14:05 64 18 137/72 94 Oxymask 09/27/24 13:55 65 20 141/66 H 92 Oxymask 09/27/24 13:45 65 14 144/73 H 98 Oxymask 09/27/24 13:35 64 20 151/70 H 99 Oxymask 09/27/24 13:27 97.5 F L 70 18 150/83 H 98 Oxymask 09/27/24 10:27 97.7 F 74 20 139/84 97 Room Air O2 Flow Rate 09/27/24 14:35 09/27/24 14:15 2 09/27/24 14:05 2 09/27/24 13:55 2 09/27/24 13:45 3 09/27/24 13:35 6 09/27/24 13:27 6 09/27/24 10:27 Pain Intensity Left Shoulder: Pain Intensity: 3 Right Shoulder: Pain Intensity: 0 Left Hand: Pain Intensity: 8 Transfer of Care Handoff Completed per policy Notes Mental Status: alert / awake / arousable and participated in evaluation Patient Amnestic to Procedure: Yes Nausea / Vomiting: adequately controlled Pain: adequately controlled Airway Patency, RR, SpO2: stable & adequate BP & HR: stable & adequate Hydration State: stable & adequate Anesthetic Complications: no major complications apparent and Pt Satisfied with anesthetic care
--- NOTE | 2024-09-27 15:13 | Pharmacy Report ---
Pharmacy Glycemic Short Note 2 - Date of Service September 27, 2024 - Glycemic Short BSG Results (Last 24 hours): 09/27/24 09/27/24 09/27/24 10:03 13:32 14:47 POC Glucose 91 84 104 H OUTPATIENT ANTIDIABETIC REGIMEN: * Basaglar 22 units SQ QHS * Humalog-- 7 or 14 units (depending how much eaten) at breakfast and supper * semaglutide 1mg SQ weekly HbA1c: 6.7% on 09/06/24 ASSESSMENT: * Gurpreet is an 84 year old male admitted today for a left total shoulder arthroplasty (POD #0). Pharmacy was consulted for glycemic management postop. * He reportedly took his dose of Basaglar last evening and his preop BSG was 99mg/dL this morning. Postop BSG was 84/104mg/dL. No Lantus will be given now as his BSG is currently below goal. A Lantus scale (0, 5 or 10 units depending on BSG) was added for HS since a diet has been ordered and patient did receive 10mg iv dexamethasone x 1 preop. * A weight based bolus insulin regimen with a stress between 1 and 2 was ordered. PLAN FOR INPATIENT GLYCEMIC CONTROL: * Hold outpatient diabetes medications * Basal insulin * Lantus scale for this HS (0, 5, or 10 units depending on BSG) * Bolus insulin * NovoLog per scale ACHS or Q6hrs while NPO * Goal Range: Low 110 mg/dL - High 10 mg/dL * Correction Factor: 30 mg/dL/unit * Nutritional / Prandial insulin per carb ratio of 1 unit per 20 grams CHO consumed
[2024-09-27] MEDS ORDERED: CARBOHYDRATES FOR HYPOGLYCEMIA PO PRN (15:15)
[2024-09-27] MEDS ORDERED: GLUCAGON FOR INJ 1 MG VIAL SQ PRN (15:15)
[2024-09-27] MEDS ORDERED: GLUCOSE 10 TAB/TUBE PO PRN (15:15)
[2024-09-27] MEDS ORDERED: DEXTROSE 50% 50 ML SYRINGE IV PRN (15:15)
[2024-09-27] MEDS ORDERED: GLUCOSE 40% GEL 15 GM TUBE PO PRN (15:15)
[2024-09-27] MEDS: SODIUM CHLORIDE 0.9% 1,000 ML IV SCH (15:28)
[2024-09-27] MEDS: KETOROLAC TROMETHAMINE 15 MG/ML VIAL IV SCH (15:30)
[2024-09-27] MEDS: [UNRECOGNIZED DRUG - OTHER] SCH (16:29)
[2024-09-27] MEDS: oxyCODONE HCL IR 5 MG TAB (IMMEDIATE RELEASE) PO PRN (17:07)
[2024-09-27] MEDS: INSULIN ASPART PER UNIT CHARGE SC SCH ×2 (17:07→23:42)
[2024-09-27] MEDS: DOCUSATE SODIUM 100 MG CAP PO SCH (20:36)
[2024-09-27] MEDS: SENNA 8.6 MG TAB PO SCH (20:36)
[2024-09-27] MEDS: ATORVASTATIN 20 MG TAB PO SCH (20:37)
[2024-09-27] MEDS ORDERED: NON-FORMULARY MEDICATION (Insulin Glargine [Basaglar Kwikpen U-100 Insulin] 100 unit/mL (3 SQ SCH (21:00)
[2024-09-27] MEDS: LANTUS PER UNIT CHARGE SC SCH (21:04)
[2024-09-28] MEDS: LEVOTHYROXINE SODIUM 150 MCG TABLET PO SCH (05:51)
[2024-09-28 07:13] VITALS: BP 125/68; PULSE 63; RESP 18; TEMP 97.3; O2SAT 96
[2024-09-28] MEDS: MULTIVITAMIN TAB PO SCH (08:33)
[2024-09-28] MEDS: RIVAROXABAN 10 MG TABLET PO SCH (08:34)
[2024-09-28] MEDS: SERTRALINE HCL 50 MG TABLET PO SCH (08:34)
[2024-09-28] MEDS: allopurinoL 100 MG TAB PO SCH (08:34)
[2024-09-28] MEDS: ATENOLOL 50 MG TABLET PO SCH (08:34)
--- NOTE | 2024-09-28 12:48 | Orthopedic Progress Note ---
Date of Service September 28, 2024 Assessment & Plan (1) Status post reverse arthroplasty of left shoulder: Assessment: Status post left reverse total shoulder arthroplasty. Plan: Overall, he is doing quite well today with good pain control left shoulder. He will work with physical therapy later this morning to work on range of motion exercises. It was discussed with him that he will continue taking 10 mg of his Xarelto for 2 weeks and then may go back up to his original dose of 20 mg at that point. He can be discharged home later this morning pending formal physical therapy evaluation recommendations. He will remain in his sling as directed. He will be nonweightbearing to left upper extremity. Discharge medications were discussed with the patient with verbal understanding. He will follow-up in 2 weeks with orthopedics for postoperative management or sooner if needed. Subjective . Kendell was seen this morning resting comfortably in no apparent distress. He notes that his pain is well-controlled to his left shoulder. He has been up and out of bed with no significant issues. He is yet to work with physical therapy this morning. He denies any concerns with surgical incision site. Denies any active bleeding, discharge, or signs of infection. He is wearing his sling as directed. He denies any other concerns today. Review of Systems All systems reviewed & are unremarkable except as noted in HPI & below. Physical Exam . On physical examination the left shoulder, he is wearing his sling as directed and appropriate manner with the surgical incision site covered with a Silverlon dressing with no signs of active bleeding, discharge, or signs of infection. Limited range of motion and strength secondary to postoperative stiffness soreness. Intact motor and nerve function to the left upper extremity. +2 radial pulse. Less than 2-second capillary refill. Normal sensation. Neurovascular intact. Results & Data Results & Data Laboratory Results . Diagnostic Findings . Shoulder X-Ray 09/27/24 13:28 XR shoulder LT min 2V routine CLINICAL HISTORY: Post shoulder surgery COMPARISON: None FINDINGS: Left shoulder prosthesis shows no hardware complication. There is expected soft tissue gas. Skin new are present. IMPRESSION: Unremarkable postoperative exam. ACT 112: Negative or not required by law. Electronically signed by: Surjit Venegas M.D. 09/27/2024 2:10 PM PG Care Time/CCT Total # of Minutes Spent Total Time Spent with Patient: Total time spent is greater than 50% in coordination of care (as documented) at patient's floor/unit and/or counseling patient: Coding Level of Care Code 26129 Post Operative Follow-Up Diagnoses Status post reverse arthroplasty of left shoulder Z96.612
--- NOTE | 2024-09-28 12:50 | Discharge Summary ---
Date of Service September 28, 2024 Admission HPI (Per Admitting) Gurpreet is a pleasant 83-year-old male who had a right anatomic shoulder replacement done by Dr. Jama about 15 years ago. He is still pretty sore with it, but he has good function. He is dealing more with left shoulder pain. He has trouble doing anything away from his body or up overhead. He has had couple injections in his shoulder. The last injection was not helpful. It is keeping him up at night. After failing extensive conservative treatment, he has elected proceed with a left reverse shoulder arthroplasty. Admission Exam (Per Admitting) On physical exam the left shoulder, he has very poor range of motion. He has pain over the glenohumeral joint line.. Principal Diagnosis Same as "Discharge Diagnosis" noted below under Discharge Instructions. Discharge Exam . On physical examination the left shoulder, he is wearing his sling as directed and appropriate manner with the surgical incision site covered with a Silverlon dressing with no signs of active bleeding, discharge, or signs of infection. Limited range of motion and strength secondary to postoperative stiffness soreness. Intact motor and nerve function to the left upper extremity. +2 radial pulse. Less than 2-second capillary refill. Normal sensation. Neurovascular intact. Discharge Data Procedures Performed Operation Date: 09/27/24 12:00 Actual Procedures p Left Reverse Total Shoulder Arthroplasty(Left) - Paco Umanzor DO Ordered Studies 09/27/24 05:00 US - OR guided needle placemen Routine Hospital Course (1) Status post reverse arthroplasty of left shoulder: On September 27, 2024 Kendell arrived at [facility] and underwent a left reverse total shoulder arthroplasty performed by Dr. Umanzor with no complications. He had a general anesthetic. Postoperatively, he was transferred to the PACU for immediate postoperative management and then transferred to the general orthopedic floor in stable condition. His hospital course was uneventful. On postoperative day #1, his vital signs are stable and his pain is well-controlled. 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 He participated well with physical therapy working on range of motion exercises. He was then discharged home in stable condition. He will follow-up with orthopedics in 2 to 3 weeks for continued postoperative management or sooner if needed. PG Care Time/CCT Total # of Minutes Spent Total Time Spent with Patient: Total time spent is greater than 50% in coordination of care (as documented) at patient's floor/unit and/or counseling patient: Discharge Plan Discharge Items Patient Disposition: Home - Home Health Services Reason For Visit: Left Shoulder Primary Osteoarthritis Discharge Diagnosis: Same Activity: Per Instructions section Non-emergency contact: Surgeon Call non-emergency contact if: your temperature is above 101.5, your wound has increased redness, your wound has increased drainage and your wound pain has increased Follow-up/Referrals: Dominick Jaeger MD [Primary Care Provider] - Diet: Regular Addtl Attending Provider Instructions: Activity and Therapy Recommendations: * If you are using [facility] then therapy will be provided at your home until they feel you have accomplished all of your goals. * If you are using [facility] then Physical Therapy will be provided until they feel you are ready to start Outpatient Physical Therapy. * If you are not using home therapy then Outpatient Physical Therapy should start about 3-5 days from your day of surgery. Therapy will last about 8-12 weeks * Wear your sling for 3 weeks, unless otherwise instructed. You may remove your sling to shower and to dress, but otherwise, you should be in your sling at all times, including while sleeping * The shoulder replacement is very stable and you can use your hand while in the sling * You were shown a series of exercises in the hospital. Do these exercises daily including the exercises you were shown in physical therapy. Medications: * Narcotic You will likely be sent home from the hospital with a prescription for the narcotic pain medication that worked best throughout your stay. * Cefadroxil -take the antibiotic twice a day for 10 days to help prevent infection. * Other medications may be prescribed for specific circumstances. If you have any questions, please call the office at . * Resume previous home medications unless otherwise instructed Dressing Care: Leave the Silverlon dressing in place for 7 days. After 7 days you may remove the dressing. If the incision is not draining then you may leave the new open to air. If there is a little bit of drainage or if the new are getting stuck on your clothing then cover the incision with a dry dressing. The new will be removed at your 2 week follow-up appointment. Showering: You may shower with the Silverlon dressing in place. Do not let the shower spray hit the dressing directly. Pat the Silverlon dressing dry. If the dressing becomes wet underneath, then simply remove the dressing. Keep the incision dry until you are 7 days out from the day of surgery. After 7 days you may remove the Silverlon dressing and shower with the new exposed. Let soapy water run over the new and pat them dry. Do not scrub or soak the incision. Diet: You may resume your previous diet. Things To Watch For: * Drainage from the incision site that occurs more than one week after your surgery. * Increased redness at the incision site. * Fever above 102 degrees Fahrenheit. * Unusual chest pain or shortness of breath. * Call [facility] at with any of the above problems Follow-Up Visit: Follow-up with Dr. Umanzor's office 2-3 weeks after your day of surgery. We will remove your new and answer any questions. If you have any additional questions or concerns, Dr Umanzor is usually in the office at the same time and will be available An appointment was probably scheduled when you signed-up for surgery in the office. If you have any questions call More detailed instructions as well as Frequently Asked Questions were provided in a folder by our office when you signed-up for surgery. Please review these instructions when you get home. If you have any further questions or concerns, please feel free to call the office at [phone] Pending Studies at Discharge: No Stand-Alone Forms: [facility], Smoking Cessation Medications and DC Order Prescriptions: New Xarelto 10 mg Tablet 10 mg PO DAILY 14 Days Qty: 14 0RF cefadroxil 500 mg capsule 500 mg PO BID 10 Days Qty: 20 0RF oxycodone 5 mg tablet 5 mg PO Q6H PRN (Reason: pain) Qty: 30 0RF Continued cholecalciferol (vitamin D3) 125 mcg (5,000 unit) capsule 125 mcg PO HS (DME) pen needle, diabetic [BD Franchesca 2nd Gen Pen Needle] 32 gauge x " need le See Rx Instructions .ROUTE .MEDSUPPLY Qty: 300 3RF Rx Instructions: use 3 x daily allopurinol 100 mg tablet 100 mg PO QAM Qty: 90 3RF insulin lispro [Humalog KwikPen Insulin] 100 unit/mL insulin pen See Rx Instructions subcut .COMPLEX MDD 28 units 90 Days Qty: 30 3RF Rx Instructions: subcutaneously; 14 u with breakfast and supper but reduce to 7 u if active or eating less (DME) lancets [OneTouch Delica Lancets] 33 gauge misc See Dose Instructions .ROUTE .MEDSUPPLY Qty: 100 Rx Instructions: As directed (DME) Dexcom G6 Sensor Device See Rx Instructions .ROUTE .MEDSUPPLY Qty: 3 5RF Rx Instructions: Change sensor every 10 days (DME) Dexcom G6 Transmitter Device See Rx Instructions .ROUTE .MEDSUPPLY Qty: 1 5RF Rx Instructions: Change every 90 days (DME) Dexcom G6 [employer] Misc See Rx Instructions .ROUTE .MEDSUPPLY Qty: 1 0RF Rx Instructions: As directed aspirin 81 mg tablet,delayed release (DR/EC) 81 mg PO QAM cyanocobalamin (vitamin B-12) 1,000 mcg tablet extended release 1,000 mcg PO QAM clobetasol 0.05 % cream 1 applic topical BID PRN (Reason: Skin Irritation) Rx Instructions: Apply to areas of the trunk and extremities twice daily x 2 weeks as needed for itching. (DME) blood sugar diagnostic Strip See Rx Instructions .ROUTE .MEDSUPPLY Qty: 100 3RF Rx Instructions: test blood sugars daily atenolol [Tenormin] 50 mg tablet 50 mg PO QAM Qty: 90 3RF insulin glargine [Basaglar KwikPen U-100 Insulin] 100 unit/mL (3 mL) insulin pen 22 unit subcut QPM 90 Days Qty: 30 1RF atorvastatin [Lipitor] 20 mg tablet 20 mg PO HS Rx Instructions: TAKE 1 TABLET BY MOUTH EVERY DAY levothyroxine 150 mcg tablet 150 mcg PO QAM sertraline [Zoloft] 50 mg tablet 50 mg PO QAM tadalafil [Cialis] 5 mg tablet 5 mg PO QAM Ozempic 1 mg/dose (4 mg/3 mL) pen injector 1 mg subcut Q7D Patient Comments: mondays Held Xarelto 20 mg tablet 20 mg PO PM Qty: 90 3RF Hold Instructions: Resume on 10/12/24. Krames/Other Patient Handouts: Shoulder Replace Home Recovery Admission Data Admit Date/Time: 09/27/24 13:28 Attending Provider: Paco Umanzor Admit Provider: Paco Umanzor Primary Care Provider: Dominick Jaeger V. Other Interventions: Discharge Summary Assessment (RN) Last Done: 09/28/24 09:36
== END 2024-09-28 10:22 | disposition home health service (06) ==
LOC: 3E 09:51 → ASU 09:51